=== PATIENT | male | born 1980 | race Caucasian/White ===

== ENCOUNTER 2021-05-23 15:06 | Emergency (ER) | payer SELFPAY ==
[2021-05-23 16:11] VITALS: TEMP 98.5
[2021-05-23] MEDS ORDERED: HYDROmorphone 0.5 MG/0.5 ML SYRINGE IVP STA (16:27)
[2021-05-23] MEDS ORDERED: SODIUM CHLORIDE 0.9% 2,000 ML IV STA (16:27)
[2021-05-23] MEDS ORDERED: ONDANSETRON 4 MG/2 ML VIAL IVP STA (16:27)
--- NOTE | 2021-05-23 16:33 | ED ---
Abdominal Pain HPI - General Chief Complaint: Abdominal Pain Stated Complaint: abd pain, referred by urgent care Time Seen by Provider: 05/23/21 16:15 Source: patient, RN notes reviewed Mode of arrival: wheelchair Limitations: no limitations - History of Present Illness Initial Comments: 40-year-old male presents emergency dept with chief complaint of abdominal pain. Patient states been having increasing abdominal pain last 4 days. Patient had nausea vomiting decreased urine and stool output. Patient states he feels like stuff is stuck in the stomach. Patient states she seen at urgent care sent here for further evaluation. Patient states that he was exposed covid 19 Adequate symptoms that started on the . Patient states that those symp toms improved and then this abdominal pain started. No prior abdominal surgeries no fevers chills no flank pain no other complaints. - Related Data Previous Rx's Medication Instructions Recorded Ondansetron Odt [Zofran Odt] 4 mg PO Q8HR PRN #10 tab 05/23/21 Allergies Allergy/AdvReac Type Severity Reaction Status Date / Time No Known Allergies Allergy Verified 05/23/21 18:02 Review of Systems ROS Statement: Those systems with pertinent positive or pertinent negative responses have been documented in the HPI. ROS Other: All systems not noted in ROS Statement are negative. Past Medical History Past Medical History: No Reported History History of Any Multi-Drug Resistant Organisms: None Reported Past Surgical History: No Surgical Hx Reported Past Psychological History: No Psychological Hx Reported Smoking Status: Never smoker Past Alcohol Use History: Rare Past Drug Use History: None Reported General Exam Limitations: no limitations General appearance: alert, in no apparent distress Head exam: Present: atraumatic, normocephalic, normal inspection Eye exam: Present: normal appearance, PERRL, EOMI. Absent: scleral icterus, con junctival injection, periorbital swelling Neck exam: Present: normal inspection. Absent: tenderness, meningismus, lymphadenopathy Respiratory exam: Present: normal lung sounds bilaterally Cardiovascular Exam: Present: regular rate, normal rhythm, normal heart sounds. Absent: systolic murmur, diastolic murmur, rubs, gallop, clicks GI/Abdominal exam: Present: soft, tenderness, normal bowel sounds. Absent: distended, guarding, rebound, rigid Back exam: Absent: CVA tenderness (R), CVA tenderness (L) Neurological exam: Present: alert Skin exam: Present: warm, dry, intact, normal color. Absent: rash Course Vital Signs 05/23/21 05/23/21 16:00 19:06 Temperature 98.5 F Pulse Rate 108 H 87 Respiratory 20 18 Rate Blood Pressure 121/77 131/85 O2 Sat by Pulse 96 97 Oximetry Medical Decision Making - Medical Decision Making CT AL as reviewed CT is unremarkable. Patient does have moderate dehydration his great improvement antiemetics and fluids. Patient symptoms started after having COVID-19 may be related. Patient will be discharged in stable condition return parameters discussed. - Lab Data Result diagrams: 05/23/21 16:53 05/23/21 16:53 Lab Results 05/23/21 05/23/21 05/23/21 Range/Units 16:53 16:53 16:53 WBC 4.4 (3.8-10.6) k/uL RBC 5.05 (4.30-5.90) m/uL Hgb 16.0 (13.0-17.5) gm/dL Hct 45.0 (39.0-53.0) % MCV 89.0 (80.0-100.0) fL MCH 31.8 (25.0-35.0) pg MCHC 35.7 (31.0-37.0) g/dL RDW 11.6 (11.5-15.5) % Plt Count 226 (150-450) k/uL MPV 8.3 Neutrophils % 80 % Lymphocytes % 12 % Monocytes % 6 % Eosinophils % 0 % Basophils % 0 % Neutrophils # 3.5 (1.3-7.7) k/uL Lymphocytes # 0.6 L (1.0-4.8) k/uL Monocytes # 0.3 (0-1.0) k/uL Eosinophils # 0.0 (0-0.7) k/uL Basophils # 0.0 (0-0.2) k/uL Sodium 135 L (137-145) mmol/L Potassium 4.1 (3.5-5.1) mmol/L Chloride 97 L (98-107) mmol/L Carbon Dioxide 25 (22-30) mmol/L Anion Gap 13 mmol/L BUN 23 H (9-20) mg/dL Creatinine 1.12 (0.66-1.25) mg/dL Est GFR (CKD-EPI)AfAm >90 (>60 ml/min/1.73 sqM) Est GFR (CKD-EPI)NonAf 83 (>60 ml/min/1.73 sqM) Glucose 110 H (74-99) mg/dL Plasma Lactic Acid Walter (0.7-2.0) mmol/L Calcium 8.7 (8.4-10.2) mg/dL Total Bilirubin 1.0 (0.2-1.3) mg/dL AST 38 (17-59) U/L ALT 13 (4-49) U/L Alkaline Phosphatase 59 (38-126) U/L Total Protein 7.6 (6.3-8.2) g/dL Albumin 4.3 (3.5-5.0) g/dL Lipase 357 H (23-300) U/L Urine Color Yellow Urine Appearance Clear (Clear) Urine pH 6.5 (5.0-8.0) Ur Specific [place] >1.050 H (1.001-1.035) Urine Protein 2+ H (Negative) Urine Glucose (UA) Negative (Negative) Urine Ketones 2+ H (Negative) Urine Blood Small H (Negative) Urine Nitrite Negative (Negative) Urine Bilirubin Negative (Negative) Urine Urobilinogen <2.0 (<2.0) mg/dL Ur Leukocyte Esterase Negative (Negative) Urine RBC 1 (0-5) /hpf Urine WBC 1 (0-5) /hpf Urine Mucus Rare H (None) /hpf 05/23/21 Range/Units 16:53 WBC (3.8-10.6) k/uL RBC (4.30-5.90) m/uL Hgb (13.0-17.5) gm/dL Hct (39.0-53.0) % MCV (80.0-100.0) fL MCH (25.0-35.0) pg MCHC (31.0-37.0) g/dL RDW (11.5-15.5) % Plt Count (150-450) k/uL MPV Neutrophils % % Lymphocytes % % Monocytes % % Eosinophils % % Basophils % % Neutrophils # (1.3-7.7) k/uL Lymphocytes # (1.0-4.8) k/uL Monocytes # (0-1.0) k/uL Eosinophils # (0-0.7) k/uL Basophils # (0-0.2) k/uL Sodium (137-145) mmol/L Potassium (3.5-5.1) mmol/L Chloride (98-107) mmol/L Carbon Dioxide (22-30) mmol/L Anion Gap mmol/L BUN (9-20) mg/dL Creatinine (0.66-1.25) mg/dL Est GFR (CKD-EPI)AfAm (>60 ml/min/1.73 sqM) Est GFR (CKD-EPI)NonAf (>60 ml/min/1.73 sqM) Glucose (74-99) mg/dL Plasma Lactic Acid Walter 1.5 (0.7-2.0) mmol/L Calcium (8.4-10.2) mg/dL Total Bilirubin (0.2-1.3) mg/dL AST (17-59) U/L ALT (4-49) U/L Alkaline Phosphatase (38-126) U/L Total Protein (6.3-8.2) g/dL Albumin (3.5-5.0) g/dL Lipase (23-300) U/L Urine Color Urine Appearance (Clear) Urine pH (5.0-8.0) Ur Specific [place] (1.001-1.035) Urine Protein (Negative) Urine Glucose (UA) (Negative) Urine Ketones (Negative) Urine Blood (Negative) Urine Nitrite (Negative) Urine Bilirubin (Negative) Urine Urobilinogen (<2.0) mg/dL Ur Leukocyte Esterase (Negative) Urine RBC (0-5) /hpf Urine WBC (0-5) /hpf Urine Mucus (None) /hpf Disposition Clinical Impression: Abdominal pain, Dehydration Disposition: HOME SELF-CARE Condition: Stable Instructions (If sedation given, give patient instructions): Abdominal Pain (ED), Dehydration (ED) Additional Instructions: Please return to the Emergency Department if symptoms worsen or any other concerns. Prescriptions: Ondansetron Odt [Zofran Odt] 4 mg PO Q8HR PRN #10 tab PRN Reason: Nausea Is patient prescribed a controlled substance at d/c from ED?: No Referrals: None,Stated [Primary Care Provider] - 1-2 days Time of Disposition: 19:42
[2021-05-23 17:00] LABS: Basophils % (A) 0 %; Eosinophils % (A) 0 %; Lymphocytes # (A) 0.6 k/uL (1.0-4.8); Lymphocytes % (A) 12 %; MCH 31.8 pg (25.0-35.0); MCHC 35.7 g/dL (31.0-37.0); Mean Platelet Volume 8.3; Monocytes # (A) 0.3 k/uL (0-1.0); Monocytes % (A) 6 %; Neutrophils # (A) 3.5 k/uL (1.3-7.7); Neutrophils % (A) 80 %; Platelet Count 226 k/uL (150-450); RBC 5.05 m/uL (4.30-5.90); RDW 11.6 % (11.5-15.5); WBC 4.4 k/uL (3.8-10.6)
[2021-05-23 17:15] LABS: ALT 13 U/L (4-49); AST 38 U/L (17-59); African American GFR (CKD) >90 (>60 ml/min/1.73 sqM); Albumin 4.3 g/dL (3.5-5.0); Alkaline Phosphatase 59 U/L (38-126); Anion Gap 13 mmol/L; Blood Urea Nitrogen 23 mg/dL (9-20); Calcium 8.7 mg/dL (8.4-10.2); Carbon Dioxide 25 mmol/L (22-30); Chloride 97 mmol/L (98-107); Glucose 110 mg/dL (74-99); Lipase 357 U/L (23-300); Non-African American GFR(CKD) 83 (>60 ml/min/1.73 sqM); Potassium 4.1 mmol/L (3.5-5.1); Sodium 135 mmol/L (137-145); Total Protein 7.6 g/dL (6.3-8.2)
--- NOTE | 2021-05-23 17:45 | CT ---
EXAMINATION TYPE: CT abdomen pelvis w con DATE OF EXAM: 05/23/2021 COMPARISON: Abdominal pain HISTORY: Mid abdominal pain with nausea and vomiting. CT DLP: 846.3 mGycm Automated exposure control for dose reduction was used. CONTRAST: Performed with IV Contrast, patient injected with 100 mL of Isovue 300. Images obtained from the diaphragm to the floor the pelvis with IV contrast. There is some subpleural patchy airspace infiltrate at the lung bases. Heart size is normal. There is no pericardial effusion. There is no pleural effusion. Liver and spleen appear intact. The bile duct s are not dilated. There is no pancreatic mass. Stomach is intact. Gallbladder appears normal. There is no adrenal mass. Kidneys show satisfactory contrast opacification. There is no hydronephrosi s. Bladder distends smoothly. There is no inguinal hernia. There is no free fluid in the pelvis. There is no mesenteric edema. There is no ascites or free air. There is no bowel obstruction. There i s high density in the appendix but could be old contrast material. The appendix has normal size. The lumbar vertebrae have normal alignment. Posterior elements are intact. There is no compression fr acture. Bony pelvis is intact. The hip joints are intact. IMPRESSION: No abnormality seen within the abdomen and pelvis. There are some small subpleural infiltrates at the lung bases.
[2021-05-23 19:07] VITALS: BP 131/85; PULSE 87; RESP 18
[2021-05-23 19:26] LABS: Appearance,Urine Clear (Clear); Bilirubin,Urine Negative (Negative); Blood,Urine Small (Negative); Color,Urine Yellow; Glucose,Urine (UA) Negative (Negative); Ketones,Urine 2+ (Negative); Leukocyte Esterase,Urine Negative (Negative); Mucus,Urine Rare /hpf; Nitrite,Urine Negative (Negative); PH, Urine 6.5 (5.0-8.0); Protein,Urine 2+ (Negative); RBC,Urine 1 /hpf (0-5); Urobilinogen,Urine <2.0 mg/dL (<2.0); WBC,Urine 1 /hpf (0-5)
[2021-05-23 19:29] LABS: Specific Gravity,Urine >1.050 (1.001-1.035)
[2021-05-23] MEDS ORDERED: ONDANSETRON 4 MG ODT STARTER PACK 2 TAB BTL PO STA (19:43)
== END 2021-05-23 20:08 | disposition home or self-care (01) ==
LOC: EC 15:06
DX: E86.0 Dehydration (principal); R10.9 Unspecified abdominal pain
CPT/HCPCS: 36415; 80053; 83605; 83690; 85025; 81001; 74177; 99284; 96374; 96375; J2405; J1170; Q9967

== ENCOUNTER 2021-05-26 09:15 | Emergency (ER) | payer OTHER ==
[2021-05-26 09:21] VITALS: TEMP 97.9
[2021-05-26] MEDS ORDERED: MORPHINE SULFATE 4 MG/ML SYRINGE IV STA (09:43)
[2021-05-26] MEDS ORDERED: SODIUM CHLORIDE 0.9% 1,000 ML IV STA (09:43)
[2021-05-26] MEDS ORDERED: ONDANSETRON 4 MG/2 ML VIAL IVP STA (09:43)
--- NOTE | 2021-05-26 09:56 | ED ---
Abdominal Pain HPI - General Chief Complaint: Abdominal Pain Stated Complaint: abd pain-revisit Time Seen by Provider: 05/26/21 09:27 Source: patient Mode of arrival: ambulatory Limitations: no limitations - History of Present Illness Initial Comments: This 40-year-old male presents to the emergency department with abdominal pain x3 days. Patient states as of yesterday he started to experience shortness of breath, vomiting, and worsening fatigue. States he has is also experiencing decreased appetite and body aches. Patient states he was here on Tuesday for abdominal pain and felt better for a day. Patient describes his abdominal pain as aching and comes and goes. He states he tested positive for COVID-19 on 05/13/21 has not felt good since. Patient denies chest pain, hemoptysis, headache, mucus production, visual changes. - Related Data Previous Rx's Medication Instructions Recorded Ondansetron Odt [Zofran Odt] 4 mg PO Q8HR PRN #10 tab 05/23/21 Allergies Allergy/AdvReac Type Severity Reaction Status Date / Time No Known Allergies Allergy Verified 05/26/21 11:34 Review of Systems ROS Statement: Those systems with pertinent positive or pertinent negative responses have been documented in the HPI. ROS Other: All systems not noted in ROS Statement are negative. Past Medical History Past Medical History: No Reported History Additional Past Medical History / Comment(s): Covid History of Any Multi-Drug Resistant Organisms: None Reported Past Surgical History: No Surgical Hx Reported Past Psychological History: No Psychological Hx Reported Smoking Status: Never smoker Past Alcohol Use History: Rare Past Drug Use History: None Reported General Exam Limitations: no limitations General appearance: alert, in no apparent distress Head exam: Present: atraumatic Eye exam: Present: normal appearance, EOMI ENT exam: Present: mucous membranes moist Neck exam: Present: normal inspection Respiratory exam: Present: normal lung sounds bilaterally. Absent: respiratory distress, wheezes, rales, rhonchi, stridor Cardiovascular Exam: Present: regular rate, normal rhythm, normal heart sounds. Absent: systolic murmur, diastolic murmur, rubs, gallop, clicks GI/Abdominal exam: Present: soft, tenderness (Slightly tender around the umbilicus and in the middle of lower quadrants. Discomfort in all quadrants.), normal bowel sounds Extremities exam: Present: normal inspection, full ROM Back exam: Present: normal inspection, full ROM Neurological exam: Present: alert, oriented X3, CN II-XII intact Psychiatric exam: Present: normal affect, normal mood Skin exam: Present: warm, dry, intact, normal color. Absent: rash Course Vital Signs 05/26/21 05/26/21 09:18 11:46 Temperature 97.9 F Pulse Rate 108 H 89 Respiratory 20 18 Rate Blood Pressure 105/76 126/85 O2 Sat by Pulse 94 L 96 Oximetry Medical Decision Making - Medical Decision Making This 40-year-old male who was positive for COVID-19 on [id number] presents to the emergency department with abdominal pain, shortness of breath, and fatigue x 1week. Labs revealed d-dimer of 2.49 and all others were unremarkable. XR KUB: There is a normal bowel gas pattern, says margins are normal, no organomegaly is present, no free air is identified, no suspicious air-fluid levels or differential air fluid levels are present no mass effect is evident. CT abdomen/pelvis: No bowel obstruction. No significant new or acute finding is seen to account for patient's clinical symptoms. Chest CTA: No CT evidence for acute pulmonary embolism. Bilateral multifocal organizing consolidations mid to lower lungs greatest in the periphery consistent with COVID-19 infection. After pain medications, fluid, and nausea medication patient states he feels much better and symptoms have improved. Patient given strict return precautions. Patient agreeable to plan to follow up with primary provider or GI next 1-2 days to return if new or worsening symptoms occur. Advised to get pulse oximeter from [facility] and to return to emergency department with oxygen drops below 90%. Patient advised to take vitamin C, vitamin D, zinc. Patient sent home stable condition. - Lab Data Result diagrams: 05/26/21 10:03 05/26/21 10:03 Lab Results 05/26/21 05/26/21 05/26/21 Range/Units 10:03 10:03 10:03 WBC 6.6 (3.8-10.6) k/uL RBC 4.66 (4.30-5.90) m/uL Hgb 14.9 (13.0-17.5) gm/dL Hct 42.2 (39.0-53.0) % MCV 90.6 (80.0-100.0) fL MCH 32.1 (25.0-35.0) pg MCHC 35.4 (31.0-37.0) g/dL RDW 11.7 (11.5-15.5) % Plt Count 311 (150-450) k/uL MPV 8.3 Neutrophils % 82 % Lymphocytes % 9 % Monocytes % 6 % Eosinophils % 1 % Basophils % 0 % Neutrophils # 5.4 (1.3-7.7) k/uL Lymphocytes # 0.6 L (1.0-4.8) k/uL Monocytes # 0.4 (0-1.0) k/uL Eosinophils # 0.0 (0-0.7) k/uL Basophils # 0.0 (0-0.2) k/uL D-Dimer (<0.60) mg/L FEU Sodium 136 L (137-145) mmol/L Potassium 3.8 (3.5-5.1) mmol/L Chloride 101 (98-107) mmol/L Carbon Dioxide 23 (22-30) mmol/L Anion Gap 12 mmol/L BUN 15 (9-20) mg/dL Creatinine 0.98 (0.66-1.25) mg/dL Est GFR (CKD-EPI)AfAm >90 (>60 ml/min/1.73 sqM) Est GFR (CKD-EPI)NonAf >90 (>60 ml/min/1.73 sqM) Glucose 117 H (74-99) mg/dL Plasma Lactic Acid Walter (0.7-2.0) mmol/L Calcium 8.6 (8.4-10.2) mg/dL Total Bilirubin 1.3 (0.2-1.3) mg/dL AST 35 (17-59) U/L ALT 15 (4-49) U/L Alkaline Phosphatase 58 (38-126) U/L Total Protein 6.8 (6.3-8.2) g/dL Albumin 3.5 (3.5-5.0) g/dL Amylase 94 (30-110) U/L Lipase 381 H (23-300) U/L Urine Color Dark Yellow Urine Appearance Clear (Clear) Urine pH 6.5 (5.0-8.0) Ur Specific [place] 1.032 (1.001-1.035) Urine Protein 3+ H (Negative) Urine Glucose (UA) Negative (Negative) Urine Ketones 1+ H (Negative) Urine Blood Trace H (Negative) Urine Nitrite Negative (Negative) Urine Bilirubin 1+ H (Negative) Urine Urobilinogen 3.0 (<2.0) mg/dL Ur Leukocyte Esterase Negative (Negative) Urine RBC 1 (0-5) /hpf Urine WBC 8 H (0-5) /hpf Urine Bacteria Rare H (None) /hpf Urine Mucus Many H (None) /hpf 05/26/21 05/26/21 Range/Units 10:03 10:03 WBC (3.8-10.6) k/uL RBC (4.30-5.90) m/uL Hgb (13.0-17.5) gm/dL Hct (39.0-53.0) % MCV (80.0-100.0) fL MCH (25.0-35.0) pg MCHC (31.0-37.0) g/dL RDW (11.5-15.5) % Plt Count (150-450) k/uL MPV Neutrophils % % Lymphocytes % % Monocytes % % Eosinophils % % Basophils % % Neutrophils # (1.3-7.7) k/uL Lymphocytes # (1.0-4.8) k/uL Monocytes # (0-1.0) k/uL Eosinophils # (0-0.7) k/uL Basophils # (0-0.2) k/uL D-Dimer 2.49 H (<0.60) mg/L FEU Sodium (137-145) mmol/L Potassium (3.5-5.1) mmol/L Chloride (98-107) mmol/L Carbon Dioxide (22-30) mmol/L Anion Gap mmol/L BUN (9-20) mg/dL Creatinine (0.66-1.25) mg/dL Est GFR (CKD-EPI)AfAm (>60 ml/min/1.73 sqM) Est GFR (CKD-EPI)NonAf (>60 ml/min/1.73 sqM) Glucose (74-99) mg/dL Plasma Lactic Acid Walter 1.4 (0.7-2.0) mmol/L Calcium (8.4-10.2) mg/dL Total Bilirubin (0.2-1.3) mg/dL AST (17-59) U/L ALT (4-49) U/L Alkaline Phosphatase (38-126) U/L Total Protein (6.3-8.2) g/dL Albumin (3.5-5.0) g/dL Amylase (30-110) U/L Lipase (23-300) U/L Urine Color Urine Appearance (Clear) Urine pH (5.0-8.0) Ur Specific [place] (1.001-1.035) Urine Protein (Negative) Urine Glucose (UA) (Negative) Urine Ketones (Negative) Urine Blood (Negative) Urine Nitrite (Negative) Urine Bilirubin (Negative) Urine Urobilinogen (<2.0) mg/dL Ur Leukocyte Esterase (Negative) Urine RBC (0-5) /hpf Urine WBC (0-5) /hpf Urine Bacteria (None) /hpf Urine Mucus (None) /hpf When compared to previous EKG there are: other (EKG:Normal sinus rhythm circular rate 97 bpm, WI interval 138, QRS duration is 144, QT/QTc is 382/485) Disposition Clinical Impression: Abdominal pain, COVID-19 Disposition: HOME SELF-CARE Condition: Stable Additional Instructions: Return to the emergency department for any new worsening symptoms. Can take [id number] vitamin D, vitamin C, zinc. Advised to get pulse oximeter from [facility] and return to emergency department if oxygen drops below 90%. Is patient prescribed a controlled substance at d/c from ED?: No Referrals: None,Stated [Primary Care Provider] - 1-2 days Time of Disposition: 12:46
[2021-05-26 10:24] LABS: Basophils % (A) 0 %; Eosinophils % (A) 1 %; HCT 42.2 % (39.0-53.0); HGB 14.9 gm/dL (13.0-17.5); Lymphocytes # (A) 0.6 k/uL (1.0-4.8); Lymphocytes % (A) 9 %; MCH 32.1 pg (25.0-35.0); MCHC 35.4 g/dL (31.0-37.0); MCV 90.6 fL (80.0-100.0); Mean Platelet Volume 8.3; Monocytes # (A) 0.4 k/uL (0-1.0); Monocytes % (A) 6 %; Neutrophils # (A) 5.4 k/uL (1.3-7.7); Neutrophils % (A) 82 %; Platelet Count 311 k/uL (150-450); RBC 4.66 m/uL (4.30-5.90); RDW 11.7 % (11.5-15.5); WBC 6.6 k/uL (3.8-10.6)
--- NOTE | 2021-05-26 10:34 | XR ---
EXAMINATION TYPE: XR chest 2V DATE OF EXAM: 05/26/2021 COMPARISON: 07/12/2011 INDICATION: Abdomen pain TECHNIQUE: Frontal and lateral views of the chest are obtained. FINDINGS: The heart size is normal. The pulmonary vasculature is normal. Patchy infiltrates are within the mid to lower lung cerda bilaterally slightly greater on the left c ompared to the right.. No free air is under the diaphragm. IMPRESSION: 1. Patchy bilateral mid to lower lung field infiltrates. Follow-up is recommended.
--- NOTE | 2021-05-26 10:35 | XR ---
EXAMINATION TYPE: XR KUB DATE OF EXAM: 05/26/2021 COMPARISON: None INDICATION: Abdomen pain TECHNIQUE: Single view abdomen upright view FINDINGS: There is a normal bowel gas pattern. Psoas margins are normal. No organomegaly is present. No free air is identified. No suspicious air-fluid levels or differential air-fluid levels are presen t no mass effect is evident. IMPRESSION: 1. Unremarkable Abdomen
[2021-05-26 10:44] LABS: ALT 15 U/L (4-49); AST 35 U/L (17-59); African American GFR (CKD) >90 (>60 ml/min/1.73 sqM); Albumin 3.5 g/dL (3.5-5.0); Alkaline Phosphatase 58 U/L (38-126); Amylase 94 U/L (30-110); Anion Gap 12 mmol/L; Blood Urea Nitrogen 15 mg/dL (9-20); Calcium 8.6 mg/dL (8.4-10.2); Carbon Dioxide 23 mmol/L (22-30); Chloride 101 mmol/L (98-107); Glucose 117 mg/dL (74-99); Lipase 381 U/L (23-300); Non-African American GFR(CKD) >90 (>60 ml/min/1.73 sqM); Potassium 3.8 mmol/L (3.5-5.1); Sodium 136 mmol/L (137-145); Total Bilirubin 1.3 mg/dL (0.2-1.3); Total Protein 6.8 g/dL (6.3-8.2)
[2021-05-26 10:53] LABS: Appearance,Urine Clear (Clear); Bacteria,Urine Rare /hpf; Bilirubin,Urine 1+ (Negative); Blood,Urine Trace (Negative); Color,Urine Dark Yellow; Glucose,Urine (UA) Negative (Negative); Ketones,Urine 1+ (Negative); Leukocyte Esterase,Urine Negative (Negative); Mucus,Urine Many /hpf; Nitrite,Urine Negative (Negative); PH, Urine 6.5 (5.0-8.0); Protein,Urine 3+ (Negative); RBC,Urine 1 /hpf (0-5); Specific Gravity,Urine 1.032 (1.001-1.035); WBC,Urine 8 /hpf (0-5)
[2021-05-26 11:47] VITALS: BP 126/85; PULSE 89; RESP 18
--- NOTE | 2021-05-26 11:55 | CT ---
EXAMINATION TYPE: CT chest angio for PE DATE OF EXAM: 05/26/2021 COMPARISON: Chest x-ray earlier today HISTORY: sob CT DLP: 345 mGycm. Automated Exposure Control for Dose Reduction was Utilized. CONTRAST: CTA scan of the thorax is performed with IV Contrast, patient injected with 100 mL of Isovue 370, pul monary embolism protocol. MIP Images are created on CT scanner and reviewed. . FINDINGS: LUNGS: Correlating with chest x-ray there are bilateral peripheral multifocal organizing consolidatio ns with few small areas of groundglass opacity greatest in the mid to lower lungs. No pleural effusio n or pneumothorax seen bilaterally MEDIASTINUM: There is satisfactory enhancement of the pulmonary artery and its branches, there is no CT evidence for pulmonary embolism. There are prominent bilateral hilar lymph nodes presumed reactiv e. No cardiomegaly or pericardial effusion is seen. OTHER: Please refer to same day CT abdomen and pelvis report for complete details on the upper abdome n. IMPRESSION: No CT evidence for acute pulmonary embolism. Bilateral multifocal organizing consolidatio ns mid to lower lungs greatest in the periphery consistent with covid-19 infection.
--- NOTE | 2021-05-26 11:59 | CT ---
EXAMINATION TYPE: CT abdomen pelvis w con DATE OF EXAM: 05/26/2021 COMPARISON: CT abdomen and pelvis 3 days ago HISTORY: continued abdominal pain with nausea and vomiting. CT DLP: 918.4 mGycm, Automated Exposure Control for Dose Reduction was Utilized. CONTRAST: CT scan of the abdomen and pelvis is performed without oral but with IV Contrast, patient injected wi th 100 mL of Isovue 370. FINDINGS: LUNG BASES: Please refer to CTA chest report pelvis performed same time. LIVER/GB: No significant abnormality is appreciated. PANCREAS: No significant abnormality is seen. SPLEEN: No significant abnormality is seen. ADRENALS: No significant abnormality is seen. KIDNEYS: No significant abnormality is seen. BOWEL: Some residual high density material throughout the colon less prominent than prior study. No s uspicious small or large bowel dilatation is seen. PROSTATE/SEMINAL VESICLES: No gross abnormality seen. LYMPH NODES: No greater than 1cm abdominal or pelvic lymph nodes are appreciated. OSSEOUS STRUCTURES: No significant abnormality is seen. OTHER: Small fat-containing bilateral inguinal hernias redemonstrated. IMPRESSION: No bowel obstruction. No significant new or acute finding is seen to account for patient 's clinical symptoms.
== END 2021-05-26 13:00 | disposition home or self-care (01) ==
LOC: EC 09:15
DX: U07.1 COVID-19 (principal); R10.84 Generalized abdominal pain
CPT/HCPCS: 99285; 96374; 96375; 96361 ×2; 36415; 93005; 85379; 80053; 82150; 83605; 83690; 85025; 81001; 71046; 74018; 71275; 74177; J2270; J2405; Q9967

== ENCOUNTER 2021-06-01 16:58 | Inpatient (IN) | payer OTHER ==
[2021-06-01] MEDS ORDERED: ALBUTEROL HFA INHALER INHALATION STA (17:30)
[2021-06-01] MEDS ORDERED: SODIUM CHLORIDE 0.9% 1,000 ML IV STA ×2 (17:30→18:47)
[2021-06-01] MEDS ORDERED: HYDROmorphone 0.5 MG/0.5 ML SYRINGE IVP STA (17:33)
[2021-06-01] MEDS ORDERED: KETOROLAC 15 MG/ML 1 ML VIAL IVP STA (17:37)
--- NOTE | 2021-06-01 17:37 | ED ---
General Adult HPI - General Chief complaint: Upper Respiratory Infection Stated complaint: SOB Time Seen by Provider: 06/01/21 17:25 Source: patient, EMS, RN notes reviewed, old records reviewed Mode of arrival: EMS Limitations: no limitations - History of Present Illness Initial comments: 40-year-old male, presents to the emergency room with complaints of increasing dyspnea. He states he was diagnosed with coronavirus on May 14. He has not been vaccinated. He continues to have shortness of breath, right-sided rib pain that radiates into his back. Patient states that it is painful with every breath. He does not have a productive cough, he has not had fevers. He states he went to urgent care today to get an inhaler and steroids and they told him to come to the emergency room with an elevated heart rate. He has no medical history. -: week(s) (2) Location: chest, back (right side) Severity scale (1-10): 8 Quality: aching, sharp, constant Consistency: constant Improves with: none Worsens with: other (breathing) Associated Symptoms: loss of appetite, malaise, shortness of breath - Related Data Home Medications Medication Instructions Recorded Confirmed Ondansetron Odt [Zofran Odt] 4 mg PO Q8H PRN 06/01/21 06/01/21 Allergies Allergy/AdvReac Type Severity Reaction Status Date / Time No Known Allergies Allergy Verified 06/01/21 18:14 Review of Systems ROS Statement: Those systems with pertinent positive or pertinent negative responses have been documented in the HPI. ROS Other: All systems not noted in ROS Statement are negative. Past Medical History Past Medical History: No Reported History Additional Past Medical History / Comment(s): Covid History of Any Multi-Drug Resistant Organisms: None Reported Past Surgical History: No Surgical Hx Reported Past Psychological History: No Psychological Hx Reported Smoking Status: Never smoker Past Alcohol Use History: Rare Past Drug Use History: None Reported General Exam Limitations: no limitations General appearance: alert, in no apparent distress Head exam: Present: atraumatic, normocephalic, normal inspection Eye exam: Present: normal appearance, EOMI. Absent: scleral icterus, conjunctival injection, periorbital swelling, periorbital tenderness ENT exam: Present: normal exam, normal oropharynx, mucous membranes moist Neck exam: Present: normal inspection, full ROM. Absent: tenderness, meningismus, lymphadenopathy, thyromegaly Respiratory exam: Present: rales ([place]), decreased breath sounds (Diminished at the bases) Cardiovascular Exam: Present: tachycardia. Absent: JVD GI/Abdominal exam: Present: soft, normal bowel sounds. Absent: distended, tenderness, guarding, rebound, rigid Extremities exam: Present: normal inspection, full ROM, normal capillary refill. Absent: tenderness, pedal edema, joint swelling, calf tenderness Back exam: Present: normal inspection, full ROM, tenderness. Absent: CVA tenderness (R) (Right side), CVA tenderness (L), rash noted Neurological exam: Present: alert, oriented X3 Psychiatric exam: Present: normal affect, normal mood Skin exam: Present: warm, dry, intact, normal color. Absent: cyanosis, d iaphoretic, erythema, petechiae, pallor Course Vital Signs 06/01/21 06/01/21 06/01/21 17:12 17:19 20:20 Temperature 99.5 F Pulse Rate 130 H 113 H Respiratory 16 26 H 18 Rate Blood Pressure 143/118 125/91 O2 Sat by Pulse 98 96 Oximetry 06/01/21 06/01/21 21:00 22:00 Temperature 98 F Pulse Rate 121 H 122 H Respiratory 18 18 Rate Blood Pressure 129/90 122/68 O2 Sat by Pulse 95 98 Oximetry - Reevaluation(s) Reevaluation #1: 06/01/21 18:31 Patient states his pain is 6 and 50 better after Toradol and Dilaudid. He continues to be dyspneic tachycardic 120, discussed with Dr. Gastelum Time: 18:31 Reevaluation #2: 06/01/21 19:22 His blood pressures down to 120/90, heart rate 128. Bolus IV fluids continue. Patient states that he is feeling much better CTA pending Time: 19:22 EKG Findings - EKG Results: EKG: not changed from: (05-26-21) EKG shows: tachycardia (Ventricular rate of 122, MN of 0.126, QRS 0.132, QTC of 0.507) Medical Decision Making - Medical Decision Making 40-year-old male presents with complaints of increasing dyspnea since diagnosed with covid on May 14 with right-sided rib pain that radiates into his back. Heart rate in the 130s, respiratory rate of 26, oxygen saturation 98% on room air. He is Covid negative today. WBC 14.8 with a left shift, platelet count is 694. His d-dimer is elevated at 5.36 therefore CTA was performed with findings consistent with acute bilateral pulmonary embolisms involving the lower lobes with a small clot burden. There is diffuse airspace obesities consistent with atypical pneumonia including Covid. Patient was started on heparin and antibiotics. I did discuss this case with Dr. Gastelum. I also discussed the case with Dr. Gutierres prior to the CT report. - Lab Data Result diagrams: 06/01/21 17:30 06/01/21 17:30 Lab Results 06/01/21 06/01/21 06/01/21 Range/Units 17:30 17:30 17:30 WBC 14.8 H (3.8-10.6) k/uL RBC 4.41 (4.30-5.90) m/uL Hgb 14.3 (13.0-17.5) gm/dL Hct 41.2 (39.0-53.0) % MCV 93.4 (80.0-100.0) fL MCH 32.4 (25.0-35.0) pg MCHC 34.7 (31.0-37.0) g/dL RDW 12.3 (11.5-15.5) % Plt Count 694 H D (150-450) k/uL MPV 7.4 Neutrophils % 84 % Lymphocytes % 7 % Monocytes % 6 % Eosinophils % 0 % Basophils % 0 % Neutrophils # 12.5 H (1.3-7.7) k/uL Lymphocytes # 1.1 (1.0-4.8) k/uL Monocytes # 0.8 (0-1.0) k/uL Eosinophils # 0.0 (0-0.7) k/uL Basophils # 0.0 (0-0.2) k/uL PT 12.7 H (9.0-12.0) sec INR 1.2 H (<1.2) APTT 26.8 (22.0-30.0) sec D-Dimer 5.36 H (<0.60) mg/L FEU Sodium 137 (137-145) mmol/L Potassium 4.1 (3.5-5.1) mmol/L Chloride 102 (98-107) mmol/L Carbon Dioxide 21 L (22-30) mmol/L Anion Gap 14 mmol/L BUN 10 (9-20) mg/dL Creatinine 0.78 (0.66-1.25) mg/dL Est GFR (CKD-EPI)AfAm >90 (>60 ml/min/1.73 sqM) Est GFR (CKD-EPI)NonAf >90 (>60 ml/min/1.73 sqM) Glucose 124 H (74-99) mg/dL Plasma Lactic Acid Walter (0.7-2.0) mmol/L Calcium 8.9 (8.4-10.2) mg/dL Magnesium 2.0 (1.6-2.3) mg/dL Total Bilirubin 1.5 H (0.2-1.3) mg/dL AST 23 (17-59) U/L ALT 20 (4-49) U/L Alkaline Phosphatase 123 (38-126) U/L Troponin I (0.000-0.034) ng/mL Total Protein 7.9 (6.3-8.2) g/dL Albumin 3.7 (3.5-5.0) g/dL Urine Color Urine Appearance (Clear) Urine pH (5.0-8.0) Ur Specific [place] (1.001-1.035) Urine Protein (Negative) Urine Glucose (UA) (Negative) Urine Ketones (Negative) Urine Blood (Negative) Urine Nitrite (Negative) Urine Bilirubin (Negative) Urine Urobilinogen (<2.0) mg/dL Ur Leukocyte Esterase (Negative) Urine RBC (0-5) /hpf Urine WBC (0-5) /hpf Urine Bacteria (None) /hpf Urine Mucus (None) /hpf 06/01/21 06/01/21 06/01/21 Range/Units 17:30 17:30 18:26 WBC (3.8-10.6) k/uL RBC (4.30-5.90) m/uL Hgb (13.0-17.5) gm/dL Hct (39.0-53.0) % MCV (80.0-100.0) fL MCH (25.0-35.0) pg MCHC (31.0-37.0) g/dL RDW (11.5-15.5) % Plt Count (150-450) k/uL MPV Neutrophils % % Lymphocytes % % Monocytes % % Eosinophils % % Basophils % % Neutrophils # (1.3-7.7) k/uL Lymphocytes # (1.0-4.8) k/uL Monocytes # (0-1.0) k/uL Eosinophils # (0-0.7) k/uL Basophils # (0-0.2) k/uL PT (9.0-12.0) sec INR (<1.2) APTT (22.0-30.0) sec D-Dimer (<0.60) mg/L FEU Sodium (137-145) mmol/L Potassium (3.5-5.1) mmol/L Chloride (98-107) mmol/L Carbon Dioxide (22-30) mmol/L Anion Gap mmol/L BUN (9-20) mg/dL Creatinine (0.66-1.25) mg/dL Est GFR (CKD-EPI)AfAm (>60 ml/min/1.73 sqM) Est GFR (CKD-EPI)NonAf (>60 ml/min/1.73 sqM) Glucose (74-99) mg/dL Plasma Lactic Acid Walter 1.6 (0.7-2.0) mmol/L Calcium (8.4-10.2) mg/dL Magnesium (1.6-2.3) mg/dL Total Bilirubin (0.2-1.3) mg/dL AST (17-59) U/L ALT (4-49) U/L Alkaline Phosphatase (38-126) U/L Troponin I <0.012 (0.000-0.034) ng/mL Total Protein (6.3-8.2) g/dL Albumin (3.5-5.0) g/dL Urine Color Dark Yellow Urine Appearance Cloudy (Clear) Urine pH 6.0 (5.0-8.0) Ur Specific [place] 1.033 (1.001-1.035) Urine Protein 3+ H (Negative) Urine Glucose (UA) Negative (Negative) Urine Ketones 2+ H (Negative) Urine Blood Negative (Negative) Urine Nitrite Negative (Negative) Urine Bilirubin 1+ H (Negative) Urine Urobilinogen 6.0 (<2.0) mg/dL Ur Leukocyte Esterase Negative (Negative) Urine RBC 1 (0-5) /hpf Urine WBC 13 H (0-5) /hpf Urine Bacteria Rare H (None) /hpf Urine Mucus Many H (None) /hpf Critical Care Time Critical Care Time: Yes Total Critical Care Time: 40 (Consistent monitoring of respiratory status and tachycardia) Disposition Clinical Impression: Bilateral pulmonary embolism Disposition: ADMITTED IP TO THIS HOSP Decision Date: 06/01/21 Decision Time: 20:49
[2021-06-01 17:55] LABS: Basophils % (A) 0 %; Eosinophils % (A) 0 %; HCT 41.2 % (39.0-53.0); HGB 14.3 gm/dL (13.0-17.5); Lymphocytes # (A) 1.1 k/uL (1.0-4.8); Lymphocytes % (A) 7 %; MCH 32.4 pg (25.0-35.0); MCHC 34.7 g/dL (31.0-37.0); MCV 93.4 fL (80.0-100.0); Mean Platelet Volume 7.4; Monocytes # (A) 0.8 k/uL (0-1.0); Monocytes % (A) 6 %; Neutrophils # (A) 12.5 k/uL (1.3-7.7); Neutrophils % (A) 84 %; RBC 4.41 m/uL (4.30-5.90); RDW 12.3 % (11.5-15.5); WBC 14.8 k/uL (3.8-10.6)
[2021-06-01 18:02] LABS: ALT 20 U/L (4-49); AST 23 U/L (17-59); African American GFR (CKD) >90 (>60 ml/min/1.73 sqM); Albumin 3.7 g/dL (3.5-5.0); Alkaline Phosphatase 123 U/L (38-126); Anion Gap 14 mmol/L; Blood Urea Nitrogen 10 mg/dL (9-20); Calcium 8.9 mg/dL (8.4-10.2); Carbon Dioxide 21 mmol/L (22-30); Chloride 102 mmol/L (98-107); Glucose 124 mg/dL (74-99); Non-African American GFR(CKD) >90 (>60 ml/min/1.73 sqM); Potassium 4.1 mmol/L (3.5-5.1); Sodium 137 mmol/L (137-145); Total Bilirubin 1.5 mg/dL (0.2-1.3); Total Protein 7.9 g/dL (6.3-8.2)
[2021-06-01 18:14] LABS: Platelet Count 694 k/uL (150-450)
[2021-06-01 18:20] LABS: INR 1.2 (<1.2); Partial Thromboplastin Time 26.8 sec (22.0-30.0); Prothrombin Time 12.7 sec (9.0-12.0)
--- NOTE | 2021-06-01 18:24 | XR ---
EXAMINATION TYPE: XR chest 2V DATE OF EXAM: 06/01/2021 COMPARISON: 05/26/2021 HISTORY: Difficulty breathing. TECHNIQUE: Frontal and lateral views of the chest are obtained. FINDINGS: There are persistent moderate right greater than left bibasilar opacities, increased on th e right compared to prior study. There is new small right pleural effusion. No pneumothorax seen. Th e cardiac silhouette size is within normal limits. The osseous structures are intact. IMPRESSION: Worsening bibasilar infiltrates with new small right pleural effusion.
[2021-06-01] MEDS ORDERED: cefTRIAXone IN SWFI 1,000 MG/10 ML SYRINGE IVP STA ×2 (18:30→20:37)
[2021-06-01 18:43] LABS: Appearance,Urine Cloudy (Clear); Bacteria,Urine Rare /hpf; Bilirubin,Urine 1+ (Negative); Blood,Urine Negative (Negative); Color,Urine Dark Yellow; Glucose,Urine (UA) Negative (Negative); Ketones,Urine 2+ (Negative); Leukocyte Esterase,Urine Negative (Negative); Mucus,Urine Many /hpf; Nitrite,Urine Negative (Negative); Protein,Urine 3+ (Negative); RBC,Urine 1 /hpf (0-5); Specific Gravity,Urine 1.033 (1.001-1.035); WBC,Urine 13 /hpf (0-5)
[2021-06-01] MEDS ORDERED: AZITHROMYCIN 500 MG in SODIUM CHLORIDE 0.9% 250 ML IVPB STA (20:37)
--- NOTE | 2021-06-01 20:41 | CT ---
EXAMINATION TYPE: CT angio chest DATE OF EXAM: 06/01/2021 8:00 PM COMPARISON: Same-day radiographs. CT 05/26/2021. HISTORY: Right sided rib pain and shortness of breath, elevated d-dimer and covid. CT DLP: 355 mGycm Automated exposure control for dose reduction was used. CONTRAST: CTA scan of the thorax is performed with IV Contrast, patient injected with 80ml mL of Isovue 370, pu lmonary embolism protocol. MIP images are created and reviewed. FINDINGS: LUNGS: There are bilateral diffuse moderate, peripheral based patchy groundglass opacities. There is small right pleural effusion. No pneumothorax seen. The tracheobronchial tree is patent. MEDIASTINUM: There is satisfactory enhancement of the pulmonary artery and its branches. There are a few filling defects in the bilateral lower lobe pulmonary artery the distal segmental subsegmental br anches. There are diffuse scattered small to borderline prominent mediastinal lymph nodes, may be re active. No pericardial effusion is seen. OTHER: No additional significant abnormality is seen. IMPRESSION: FINDINGS CONSISTENT WITH ACUTE BILATERAL PE INVOLVING THE LOWER LOBES WITH SMALL CLOT BURDEN. DIFFUSE AIRSPACE OPACITIES CONSISTENT ATYPICAL PNEUMONIA INCLUDING COVID. UNSUCCESSFUL ATTEMPT TO REACH ED AT TIME OF DICTATION.
[2021-06-01] MEDS ORDERED: HEPARIN SODIUM 1,000 UN/ML (10ML VL) IV ONE (20:48)
[2021-06-01] MEDS ORDERED: HEPARIN SODIUM 1,000 UN/ML (10ML VL) IV PRN (20:48)
[2021-06-01] MEDS ORDERED: HYDROmorphone 0.5 MG/0.5 ML SYRINGE IVP PRN (20:50)
[2021-06-01] MEDS ORDERED: ACETAMINOPHEN TAB 325 MG TAB PO PRN (20:50)
[2021-06-01] MEDS ORDERED: NALOXONE 0.4 MG/ML 1 ML VIAL IV PRN (20:50)
[2021-06-01] MEDS ORDERED: HEPARIN SOD,PORK IN 0.45% NACL 25,000 UNIT in 0.45% NACL 1 250ML.BAG IV SCH (21:00)
[2021-06-01] MEDS: SODIUM CHLORIDE 0.9% 1,000 ML IV SCH (21:26)
[2021-06-02 03:45] LABS: Basophils % (A) 0 %; Eosinophils % (A) 0 %; HCT 35.4 % (39.0-53.0); HGB 11.6 gm/dL (13.0-17.5); Lymphocytes # (A) 1.3 k/uL (1.0-4.8); Lymphocytes % (A) 11 %; MCH 31.1 pg (25.0-35.0); MCHC 32.9 g/dL (31.0-37.0); MCV 94.5 fL (80.0-100.0); Mean Platelet Volume 7.3; Monocytes # (A) 0.7 k/uL (0-1.0); Monocytes % (A) 6 %; Neutrophils # (A) 8.7 k/uL (1.3-7.7); Neutrophils % (A) 79 %; Platelet Count 642 k/uL (150-450); RBC 3.75 m/uL (4.30-5.90); RDW 12.4 % (11.5-15.5)
[2021-06-02 04:27] LABS: INR 1.2 (<1.2); Partial Thromboplastin Time 40.8 sec (22.0-30.0); Prothrombin Time 12.5 sec (9.0-12.0)
[2021-06-02 07:25] LABS: Basophils % (A) 0 %; Eosinophils % (A) 0 %; HCT 36.4 % (39.0-53.0); HGB 11.9 gm/dL (13.0-17.5); Lymphocytes # (A) 1.1 k/uL (1.0-4.8); Lymphocytes % (A) 10 %; MCH 31.1 pg (25.0-35.0); MCHC 32.6 g/dL (31.0-37.0); MCV 95.5 fL (80.0-100.0); Mean Platelet Volume 7.5; Monocytes # (A) 0.7 k/uL (0-1.0); Monocytes % (A) 7 %; Neutrophils # (A) 8.4 k/uL (1.3-7.7); Neutrophils % (A) 79 %; Platelet Count 579 k/uL (150-450); RBC 3.81 m/uL (4.30-5.90); RDW 11.9 % (11.5-15.5); WBC 10.7 k/uL (3.8-10.6)
[2021-06-02] MEDS: PANTOPRAZOLE 40 MG/10 ML VIAL IV SCH (08:37)
[2021-06-02] MEDS: SODIUM CHLORIDE 0.9% 1,000 ML IV SCH ×3 (08:37→21:11)
--- NOTE | 2021-06-02 10:00 | ECHOF ---
Referral Reason: MEASUREMENTS -------- HEIGHT: 180.3 cm WEIGHT: 81.6 kg BP: RVIDd: 2.2 cm (< 3.3) IVSd: 1.0 cm (0.6 - 1.1) LVIDd: 3.4 cm (3.9 - 5.3) LVPWd: 1.2 cm (0.6 - 1.1) IVSs: 1.5 cm LVIDs: 1.7 cm LVPWs: 1.5 cm Ao Diam: 3.0 cm (2.0 - 3.7) AV Cusp: 1.9 cm (1.5 - 2.6) LA Diam: 2.5 cm (2.7 - 3.8) MV EXCURSION: 16.659 mm (> 18.000) MV EF SLOPE: 90 mm/s (70 - 150) EPSS: 0.5 cm MV E Andrea: 0.98 m/s MV DecT: 131 ms MV A Andrea: 0.92 m/s MV E/A Ratio: 1.07 RAP: 5.00 mmHg RVSP: 8.59 mmHg FINDINGS -------- Resting tachycardia (HR>100bpm). This was a technically difficult study with suboptimal views. The left ventricular size is normal. Left ventricular wall thickness is normal. Overall left vent ricular systolic function is normal with, an EF between 60 - 65 %. The right ventricle is normal in size. The left atrial size is normal. The right atrial size is normal. Lumason used The aortic valve is trileaflet and appears structurally normal. The mitral valve is normal. There is trace mitral regurgitation. The tricuspid valve appears structurally normal. Trace tricuspid regurgitation present. Right ruben tricular systolic pressure is normal at < 35 mmHg. There is no pulmonic regurgitation present. The aortic root size is normal. IVC Not well visulized. There is no pericardial effusion. CONCLUSIONS -------- 1. The left ventricular size is normal. 2. Left ventricular wall thickness is normal. 3. Overall left ventricular systolic function is normal with, an EF between 60 - 65 %. 4. There is trace mitral regurgitation. 5. Trace tricuspid regurgitation present. 6. There is no pericardial effusion. POST ADOPTION COORDINATOR: Jeannette Miller [facility]
--- NOTE | 2021-06-02 10:13 | P.CNPUL ---
History of Present Illness Consult date: 06/02/21 Reason for consult: pulmonary embolism History of present illness: A 40-year-old male patient who presented to the [facility] to yesterday because of worsening shortness of breath, and some symptoms of pleurisy as the patient was having some pain across the right side of the chest radiating to his back especially with deep breathing. He did have a cough without much of any sputum production. No reported fever or chills. His condition was getting worse and for that reason the patient decided to come in to the emergency department. In the ED, the patient was still having right-sided achy chest wall pain. D-dimer was elevated and the level came back at 5.36. Based on that, there was a high suspicion for pulmonary embolism. The patient was given a CT angiogram and the patient was found to have bilateral pulmonary embolism involving the segmental and subsegmental branches of the lower lobes bilaterally with a small clot burden. There was still diffuse airspace disease bilaterally consistent with community related pneumonia and probably the infiltrates were slightly worse compared to the previous CAT scan of the chest that was done on 05/26/2020. Note that at that time, the patient had COVID 19 infection and his original infection was on 05/14/2021. He was not hospitalized. He was seen in our emergency department on 05/26/2021 for symptoms of abdominal pain and body aches and diminished appetite. He denies having any major respiratory difficulties at that point in time. The patient was seen by the emergency physicians and the patient was discharged home while being given a combination of vitamin D and vitamin C and zinc and he was asked to come back to the emergency should there be a drop in his oxygenation or worsening in her respiratory status. At this point in time, the patient on IV heparin. Lisinopril 10.7 and hemoglobin of 11.9. The repeat COVID 19 testing was negative. Pro-Level Was at 0.32. Elect rolytes Are All within Normal Limits. UA Showing Positive Protein, +2 Ketones and Platelet Count Is at 579. He Is Afebrile. Currently Is on 2 L of Oxygen to Bring His Pulse Ox at 97%. Room Air Pulse Ox Has Been Also Stable Some Were between 96 and 98%. Review of Systems Constitutional: Denies chills, Denies fever Eyes: denies as per HPI, denies blurred vision, denies bulging eye, denies decreased vision, denies diplopia, denies discharge, denies dry eye, denies irritation, denies itching, denies pain, denies photophobia, denies loss of peripheral vision, denies loss of vision, denies tunnel vision/blind spots Ears: deny: decreased hearing, ear discharge, earache, tinnitus Ears, nose, mouth and throat: Reports as per HPI Breasts: absent: as per HPI, gynecomastia Cardiovascular: Reports chest pain, Reports decreased exercise tolerance, Reports dyspnea on exertion Respiratory: Reports cough, Reports dyspnea Gastrointestinal: Reports as per HPI Genitourinary: Reports as per HPI Musculoskeletal: Reports as per HPI Musculoskeletal: absent: ankle pain, ankle stiffness, ankle swelling Integumentary: Reports as per HPI Neurological: Reports as per HPI Psychiatric: Reports as per HPI Endocrine: Reports as per HPI Hematologic/Lymphatic: Reports as per HPI Allergic/Immunologic: Reports as per HPI Past Medical History Past Medical History: No Reported History Additional Past Medical History / Comment(s): Covid History of Any Multi-Drug Resistant Organisms: None Reported Past Surgical History: No Surgical Hx Reported Past Psychological History: No Psychological Hx Reported Smoking Status: Never smoker Past Alcohol Use History: Rare Past Drug Use History: None Reported Medications and Allergies Home Medications Medication Instructions Recorded Confirmed Type Ondansetron Odt [Zofran Odt] 4 mg PO Q8H PRN 06/01/21 06/01/21 History Allergies Allergy/AdvReac Type Severity Reaction Status Date / Time No Known Allergies Allergy Verified 06/01/21 18:14 Physical Exam Vitals: Vital Signs Temp Pulse Resp BP Pulse Ox 06/02/21 08:20 98.7 F 112 H 20 119/87 96 06/02/21 04:45 98.2 F 100 18 118/80 97 06/01/21 22:00 122 H 18 122/68 98 06/01/21 21:00 98 F 121 H 18 129/90 95 06/01/21 20:20 113 H 18 125/91 96 06/01/21 17:19 26 H 06/01/21 17:12 99.5 F 130 H 16 143/118 98 Intake and Output 06/01/21 06/02/21 06/02/21 22:59 06:59 14:59 Intake Total 104.587 Balance 104.587 Intake: Intake, IV Titration 104.587 Amount Heparin Sod,Pork in 0.45% 104.587 NaCl 25,000 unit In 0.45 % NaCl 1 250ml.bag @ 18 UNITS/KG/HR 14.696 mls/hr IV .[id number] [facility] Rx#: [id number] Other: Weight 81.647 kg General appearance: alert, in no apparent distress, on 2 liters Head exam: Present: atraumatic, normocephalic, normal inspection Eye exam: Present: normal appearance, EOMI. Absent: scleral icterus, conjunctival injection, periorbital swelling, periorbital tenderness ENT exam: Present: normal exam, normal oropharynx, mucous membranes moist Neck exam: Present: normal inspection, full ROM. Absent: tenderness, mening ismus, lymphadenopathy, thyromegaly Respiratory exam: Present: rales ([place]), decreased breath sounds (Diminished at the bases) Cardiovascular Exam: Present: tachycardia. Absent: JVD GI/Abdominal exam: Present: soft, normal bowel sounds. Absent: distended, tenderness, guarding, rebound, rigid Extremities exam: Present: normal inspection, full ROM, normal capillary refill. Absent: tenderness, pedal edema, joint swelling, calf tenderness Back exam: Present: normal inspection, full ROM, tenderness. Absent: CVA tenderness (R) (Right side), CVA tenderness (L), rash noted Neurological exam: Present: alert, oriented X3 Psychiatric exam: Present: normal affect, normal mood Skin exam: Present: warm, dry, intact, normal color. Absent: cyanosis, diaphoretic, erythema, petechiae, pallor Results - Laboratory Findings CBC and BMP: 06/02/21 06:35 06/01/21 17:30 PT/INR, D-dimer PT 12.5 sec (9.0-12.0) H 06/02/21 03:04 INR 1.2 (<1.2) H 06/02/21 03:04 D-Dimer 5.36 mg/L FEU (<0.60) H 06/01/21 17:30 Abnormal lab findings: Abnormal Labs 06/01/21 06/01/21 06/01/21 17:30 17:30 17:30 WBC 14.8 H RBC Hgb Hct Plt Count 694 H D Neutrophils # 12.5 H PT 12.7 H INR 1.2 H APTT D-Dimer 5.36 H Carbon Dioxide 21 L Glucose 124 H Total Bilirubin 1.5 H Procalcitonin Urine Protein Urine Ketones Urine Bilirubin Urine WBC Urine Bacteria Urine Mucus 06/01/21 06/01/21 06/02/21 18:26 20:54 03:04 WBC 11.0 H RBC 3.75 L Hgb 11.6 L Hct 35.4 L Plt Count 642 H Neutrophils # 8.7 H PT INR APTT D-Dimer Carbon Dioxide Glucose Total Bilirubin Procalcitonin 0.32 H Urine Protein 3+ H Urine Ketones 2+ H Urine Bilirubin 1+ H Urine WBC 13 H Urine Bacteria Rare H Urine Mucus Many H 06/02/21 06/02/21 03:04 06:35 WBC 10.7 H RBC 3.81 L Hgb 11.9 L Hct 36.4 L Plt Count 579 H Neutrophils # 8.4 H PT 12.5 H INR 1.2 H APTT 40.8 H D-Dimer Carbon Dioxide Glucose Total Bilirubin Procalcitonin Urine Protein Urine Ketones Urine Bilirubin Urine WBC Urine Bacteria Urine Mucus - Diagnostic Findings Chest x-ray: image reviewed Assessment and Plan Plan: 1 acute pulmonary embolism. The patient had a CT angiogram that showed bilateral pulmonary embolism involving lower lobe pulmonary arteries. Risk factors include COVID 19 infection that occurred on 05/13/2021 and since then the patient has been essentially sedentary. He does have a family history for pulmonary embolism as his mother has been diagnosed having blood clots. 2 COVID 19 related pneumonia with persistent bilateral pulmonary infiltrates, with probable some interval worsening in the pulmonary infiltration compared to the earlier evaluations 3 vertigo right-sided chest wall pain secondary to above 4 dyspnea cough secondary to above 5 smoker Plan Monitor the oxygenation and titrate oxygen flow to maintain saturation above 90%. Room air pulse ox remains above 90%. Check Doppler of the lower extremities Check echocardiogram This continued IV heparin and put the patient on Eliquis per protocol The patient continues to have persistent bilateral pulmonary infiltration. He may benefit from a round of steroids. I'm going to give him a course of Decadron 6 mg for the next 10 days. Antibiotics can be discontinued Repeat pro-calcitonin level in a.m. No indication for pneumonia and this is a sequelae of the COVID 19 related infection/pneumonia complicated further by pulmonary embolism.
[2021-06-02] MEDS: dexAMETHasone 2 MG TAB PO SCH (10:46)
[2021-06-02] MEDS: APIXABAN 5 MG TAB PO SCH ×2 (10:46→21:10)
--- NOTE | 2021-06-02 12:38 | P.HPIM ---
History of Present Illness This is a pleasant 40 is old male with no significant past medical history presents because of dyspnea and right side chest pain. He presents because of for some dyspnea and right sided chest pain since May 26 or , patient states that he's been exposed and diagnosed with Darren infection on May 13 although there is no documentation or system. This has some mild symptoms and improved but then he started developing abdominal pain and he has visited the emergency room on May 23 for abdominal pain. He was discharged and then returned to emergency room on 05/26 for some dyspnea and coughing, and he was saturating well so he was discharged and asked to monitor his oxygen saturation however since then his symptoms started getting worse. Also he has some hemoptysis Today is lying in bed in mild distress due to his tachypnea and chest pain, he can talk freely with no interruption. He feels generally weak and exhausted, no dysuria or urgency, no headache or dizziness, no abdominal pain, he has some low appetite and mild diarrhea He used to smoke about 1 pack per day and quit on 05/14. No alcohol or illi cit drugs. On admission he was tachycardic a heart rate R rote 100 220, afebrile, saturating 96% on 2 L oxygen via nasal cannula. Labs showing mild leukocytosis 11, hemoglobin 11.6 and high platelet count 642. INR is 1.2 Priorcalcitonin is elevated at 0.32.. Proteinuria was noted also on the prev ious 2 samples from 05/23 and 05/26 Urine analysis showing 3+ protein, 2+ ketones and 1+ bilirubin, [place] virus not detected Chest x-ray: Worsening bilateral basal infiltrates with small right pleural ef fusion CTA of the chest: Acute bilateral pulmonary embolism involving the lower lobes with small clot burden. Diffuse airspace opacity consistent with atypical pneumonia Echocardiogram: Ejection fraction of 60-65% Review of Systems CONSTITUTIONAL: No fever, no malaise, no fatigue. HEENT: No recent visual problems or hearing problems. Denied any sore throat. CARDIOVASCULAR: No orthopnea, PND, no palpitations, no syncope. PULMONARY: No chest wall tenderness, no sore throat GASTROINTESTINAL: No diarrhea, no nausea, no vomiting, no abdominal pain. Normoactive bowel sounds. NEUROLOGICAL: No headaches, no weakness, no numbness. HEMATOLOGICAL: Denies any bleeding or petechiae. GENITOURINARY: Denies any burning micturition, frequency, or urgency. MUSCULOSKELETAL/RHEUMATOLOGICAL: Denies any joint pain, swelling, or any muscle pain. ENDOCRINE: Denies any polyuria or polydipsia. Past Medical History Past Medical History: No Reported History Additional Past Medical History / Comment(s): Covid History of Any Multi-Drug Resistant Organisms: None Reported Past Surgical History: No Surgical Hx Reported Past Psychological History: No Psychological Hx Reported Smoking Status: Never smoker Past Alcohol Use History: Rare Past Drug Use History: None Reported Medications and Allergies Home Medications Medication Instructions Recorded Confirmed Type Ondansetron Odt [Zofran Odt] 4 mg PO Q8H PRN 06/01/21 06/01/21 History Allergies Allergy/AdvReac Type Severity Reaction Status Date / Time No Known Allergies Allergy Verified 06/01/21 18:14 Physical Exam Vitals: Vital Signs Temp Pulse Resp BP Pulse Ox 06/02/21 08:20 98.7 F 112 H 20 119/87 96 06/02/21 04:45 98.2 F 100 18 118/80 97 06/01/21 22:00 122 H 18 122/68 98 06/01/21 21:00 98 F 121 H 18 129/90 95 06/01/21 20:20 113 H 18 125/91 96 06/01/21 17:19 26 H 06/01/21 17:12 99.5 F 130 H 16 143/118 98 Intake and Output 06/01/21 06/02/21 06/02/21 22:59 06:59 14:59 Intake Total 104.587 Balance 104.587 Intake: Intake, IV Titration 104.587 Amount Heparin Sod,Pork in 0.45% 104.587 NaCl 25,000 unit In 0.45 % NaCl 1 250ml.bag @ 18 UNITS/KG/HR 14.696 mls/hr IV .Q17H1M [facility] Rx#: [id number] Other: Weight 81.647 kg GENERAL: The patient is alert and oriented x3, not in any acute distress. Well developed, well nourished. HEENT: Pupils are round and equally reacting to light. EOMI. No scleral icterus. No conjunctival pallor. Normocephalic, atraumatic. No pharyngeal erythema. No thyromegaly. CARDIOVASCULAR: S1 and S2 present. No murmurs, rubs, or gallops. -PULMONARY: Chest is clear to auscultation, no wheezing. Bilateral crackles. ABDOMEN: Soft, nontender, nondistended, normoactive bowel sounds. No palpable organomegaly. MUSCULOSKELETAL: No joint swelling or deformity. EXTREMITIES: No cyanosis, clubbing, or pedal edema. NEUROLOGICAL: Gross neurological examination did not reveal any focal deficits. SKIN: No rashes. No petechiae Results CBC & Chem 7: 06/02/21 06:35 06/01/21 17:30 Labs: Abnormal Lab Results - Last 24 Hours (Table) 06/01/21 06/01/21 06/01/21 Range/Units 17:30 17:30 17:30 WBC 14.8 H (3.8-10.6) k/uL RBC (4.30-5.90) m/uL Hgb (13.0-17.5) gm/dL Hct (39.0-53.0) % Plt Count 694 H D (150-450) k/uL Neutrophils # 12.5 H (1.3-7.7) k/uL PT 12.7 H (9.0-12.0) sec INR 1.2 H (<1.2) APTT (22.0-30.0) sec D-Dimer 5.36 H (<0.60) mg/L FEU Carbon Dioxide 21 L (22-30) mmol/L Glucose 124 H (74-99) mg/dL Total Bilirubin 1.5 H (0.2-1.3) mg/dL Procalcitonin (0.02-0.09) ng/mL Urine Protein (Negative) Urine Ketones (Negative) Urine Bilirubin (Negative) Urine WBC (0-5) /hpf Urine Bacteria (None) /hpf Urine Mucus (None) /hpf 06/01/21 06/01/21 06/02/21 Range/Units 18:26 20:54 03:04 WBC 11.0 H (3.8-10.6) k/uL RBC 3.75 L (4.30-5.90) m/uL Hgb 11.6 L (13.0-17.5) gm/dL Hct 35.4 L (39.0-53.0) % Plt Count 642 H (150-450) k/uL Neutrophils # 8.7 H (1.3-7.7) k/uL PT (9.0-12.0) sec INR (<1.2) APTT (22.0-30.0) sec D-Dimer (<0.60) mg/L FEU Carbon Dioxide (22-30) mmol/L Glucose (74-99) mg/dL Total Bilirubin (0.2-1.3) mg/dL Procalcitonin 0.32 H (0.02-0.09) ng/mL Urine Protein 3+ H (Negative) Urine Ketones 2+ H (Negative) Urine Bilirubin 1+ H (Negative) Urine WBC 13 H (0-5) /hpf Urine Bacteria Rare H (None) /hpf Urine Mucus Many H (None) /hpf 06/02/21 06/02/21 Range/Units 03:04 06:35 WBC 10.7 H (3.8-10.6) k/uL RBC 3.81 L (4.30-5.90) m/uL Hgb 11.9 L (13.0-17.5) gm/dL Hct 36.4 L (39.0-53.0) % Plt Count 579 H (150-450) k/uL Neutrophils # 8.4 H (1.3-7.7) k/uL PT 12.5 H (9.0-12.0) sec INR 1.2 H (<1.2) APTT 40.8 H (22.0-30.0) sec D-Dimer (<0.60) mg/L FEU Carbon Dioxide (22-30) mmol/L Glucose (74-99) mg/dL Total Bilirubin (0.2-1.3) mg/dL Procalcitonin (0.02-0.09) ng/mL Urine Protein (Negative) Urine Ketones (Negative) Urine Bilirubin (Negative) Urine WBC (0-5) /hpf Urine Bacteria (None) /hpf Urine Mucus (None) /hpf Microbiology - Last 24 Hours (Table) 06/01/21 18:26 Urine Culture - Preliminary Urine,Clean Catch Assessment and Plan Assessment: Bilateral pneumonia, mostly secondary to, COVID-19 however aust[place] virus test PCR came back negative last night. Bilateral pulmonary embolism Acute hypoxic respiratory failure Increase inflammatory markers Family history of blood clots Proteinuria Plan: This is a pleasant 40 years old male who presents with bilateral PE Continue with anticoagulation to oral Eliquis Pulmonary team consult recommended to stop antibiotics and start the patient on dexamethasone for 10 days starting on 06/02/2021. Repeat PROcalcitonin tomorrow Consult nephrology service for proteinuria Labs and medication were reviewed.. Continue same treatment. Continue with symptomatic treatment. Resume home medication. Monitor lytes and vitals. DVT and GI prophylaxis. Further recommendations depends on the clinical course of the patient DVT prophylaxis: Eliquis GI Prophylaxis: PPI Prognosis is guarded
--- NOTE | 2021-06-02 12:42 | US ---
EXAMINATION TYPE: US venous doppler duplex LE BI DATE OF EXAM: 06/02/2021 10:34 AM COMPARISON: NONE CLINICAL HISTORY: 40-year-old male PE post CoVID. No leg symptoms, had covid, elevated d-dimer, PE's SIDE PERFORMED: Bilateral TECHNIQUE: The lower extremity deep venous system is examined utilizing real time linear array sonog vanessa with graded compression, doppler sonography and color-flow sonography. FINDINGS: VESSELS IMAGED: Common Femoral Vein Deep Femoral Vein Greater Saphenous Vein * Femoral Vein Popliteal Vein Small Saphenous Vein * Proximal Calf Veins (* superficial vessels) Right Leg: Negative for DVT Left Leg: Negative for DVT IMPRESSION: No evidence for DVT within the bilateral lower extremities imaged from the groin to the upper calves.
[2021-06-02 18:58] LABS: Appearance,Urine Clear (Clear); Bilirubin,Urine Negative (Negative); Blood,Urine Negative (Negative); Color,Urine Yellow; Glucose,Urine (UA) Negative (Negative); Ketones,Urine Negative (Negative); Leukocyte Esterase,Urine Negative (Negative); Nitrite,Urine Negative (Negative); Protein,Urine Trace (Negative); Specific Gravity,Urine 1.014 (1.001-1.035)
[2021-06-03 03:27] LABS: Basophils % (A) 0 %; Eosinophils % (A) 0 %; HCT 35.5 % (39.0-53.0); HGB 11.6 gm/dL (13.0-17.5); Lymphocytes # (A) 0.6 k/uL (1.0-4.8); Lymphocytes % (A) 5 %; MCH 31.1 pg (25.0-35.0); MCHC 32.7 g/dL (31.0-37.0); MCV 95.2 fL (80.0-100.0); Mean Platelet Volume 7.3; Monocytes # (A) 0.8 k/uL (0-1.0); Monocytes % (A) 7 %; Neutrophils # (A) 9.6 k/uL (1.3-7.7); Neutrophils % (A) 86 %; Platelet Count 656 k/uL (150-450); RBC 3.73 m/uL (4.30-5.90); RDW 12.4 % (11.5-15.5); WBC 11.1 k/uL (3.8-10.6)
[2021-06-03 03:34] LABS: African American GFR (CKD) >90 (>60 ml/min/1.73 sqM); Anion Gap 6 mmol/L; Blood Urea Nitrogen 7 mg/dL (9-20); Calcium 8.5 mg/dL (8.4-10.2); Carbon Dioxide 23 mmol/L (22-30); Chloride 109 mmol/L (98-107); Glucose 161 mg/dL (74-99); LDH 636 U/L (313-618); Non-African American GFR(CKD) >90 (>60 ml/min/1.73 sqM); Potassium 4.4 mmol/L (3.5-5.1); Sodium 138 mmol/L (137-145)
[2021-06-03 04:10] LABS: C Reactive Protein 33.8 mg/dL (<1.0)
[2021-06-03] MEDS: PANTOPRAZOLE 40 MG/10 ML VIAL IV SCH (09:12)
[2021-06-03] MEDS: dexAMETHasone 2 MG TAB PO SCH (09:13)
[2021-06-03] MEDS: APIXABAN 5 MG TAB PO SCH ×2 (09:14→20:50)
[2021-06-03] MEDS: SODIUM CHLORIDE 0.9% 1,000 ML IV SCH (09:16)
--- NOTE | 2021-06-03 11:36 | P.PN ---
Subjective This is a pleasant 40 is old male with no significant past medical history presents because of dyspnea and right side chest pain. He presents because of for some dyspnea and right sided chest pain since May 26 or , patient states that he's been exposed and diagnosed with Darren infection on May 13 although there is no documentation or system. This has some mild symptoms and improved but then he started developing abdominal pain a nd he has visited the emergency room on May 23 for abdominal pain. He was discharged and then returned to emergency room on 05/26 for some dyspnea and coughing, and he was saturating well so he was discharged and asked to monitor his oxygen saturation however since then his symptoms started getting worse. Also he has some hemoptysis Today is lying in bed in mild distress due to his tachypnea and chest pain, he can talk freely with no interruption. He feels generally weak and exhausted, no dysuria or urgency, no headache or dizziness, no abdominal pain, he has some low appetite and mild diarrhea He used to smoke about 1 pack per day and quit on 05/14. No alcohol or illicit drugs. On admission he was tachycardic a heart rate R rote 100 220, afebrile, saturating 96% on 2 L oxygen via nasal cannula. Labs showing mild leukocytosis 11, hemoglobin 11.6 and high platelet count 642. INR is 1.2 Priorcalcitonin is elevated at 0.32.. Proteinuria was noted also on the previous 2 samples from 05/23 and 05/26 Urine analysis showing 3+ protein, 2+ ketones and 1+ bilirubin, [place] virus not detected Chest x-ray: Worsening bilateral basal infiltrates with small right pleural effusion CTA of the chest: Acute bilateral pulmonary embolism involving the lower lobes with small clot burden. Diffuse airspace opacity consistent with atypical pneumonia Echocardiogram: Ejection fraction of 60-65% 06/03/2021 Patient still feels very lethargic and malaise. His dyspnea is slightly better however he is still in bed with no exertion. He still but tachycardic. Labs reviewed he has mild leukocytosis 11.1. Echocardiogram showing ejection fraction of 60-65%. Repeat PROcalcitonin showing trending down to 0.18 without antibiotic Urine analysis is negative with only trace proteinuria therefore no need currently for nephrology consult Dermis on dexamethasone, Eliquis therapeutic dose at 10 mg twice a day. Continue gentle hydration Objective - Vital Signs Vital signs: Vital Signs Temp 97.7 F 06/03/21 09:00 Pulse 105 H 06/03/21 09:00 Resp 16 06/03/21 09:00 BP 140/89 06/03/21 09:00 Pulse Ox 95 06/03/21 09:00 Intake & Output 06/02/21 06/03/21 06/03/21 18:59 06:59 18:59 Output Total 1 Balance -1 Weight 81.647 kg Output: Urine 1 - Exam GENERAL: The patient is alert and oriented x3, not in any acute distress. Well developed, well nourished. HEENT: Pupils are round and equally reacting to light. EOMI. No scleral icterus. No conjunctival pallor. Normocephalic, atraumatic. No pharyngeal erythema. No thyromegaly. CARDIOVASCULAR: S1 and S2 present. No murmurs, rubs, or gallops. PULMONARY: Chest is clear to auscultation, no wheezing or crackles. ABDOMEN: Soft, nontender, nondistended, normoactive bowel sounds. No palpable organomegaly. MUSCULOSKELETAL: No joint swelling or deformity. EXTREMITIES: No cyanosis, clubbing, or pedal edema. NEUROLOGICAL: Gross neurological examination did not reveal any focal deficits. SKIN: No rashes. no petechiae. - Labs CBC & Chem 7: 06/03/21 03:01 06/03/21 03:01 Labs: Abnormal Lab Results - Last 24 Hours (Table) 06/02/21 06/03/21 06/03/21 Range/Units 18:20 03:01 03:01 WBC (3.8-10.6) k/uL RBC (4.30-5.90) m/uL Hgb (13.0-17.5) gm/dL Hct (39.0-53.0) % Plt Count (150-450) k/uL Neutrophils # (1.3-7.7) k/uL Lymphocytes # (1.0-4.8) k/uL Chloride 109 H (98-107) mmol/L BUN 7 L (9-20) mg/dL Creatinine 0.56 L (0.66-1.25) mg/dL Glucose 161 H (74-99) mg/dL Lactate Dehydrogenase 636 H (313-618) U/L C-Reactive Protein 33.8 H (<1.0) mg/dL Procalcitonin 0.18 H (0.02-0.09) ng/mL Urine Protein Trace H (Negative) 06/03/21 Range/Units 03:01 WBC 11.1 H (3.8-10.6) k/uL RBC 3.73 L (4.30-5.90) m/uL Hgb 11.6 L (13.0-17.5) gm/dL Hct 35.5 L (39.0-53.0) % Plt Count 656 H (150-450) k/uL Neutrophils # 9.6 H (1.3-7.7) k/uL Lymphocytes # 0.6 L (1.0-4.8) k/uL Chloride (98-107) mmol/L BUN (9-20) mg/dL Creatinine (0.66-1.25) mg/dL Glucose (74-99) mg/dL Lactate Dehydrogenase (313-618) U/L C-Reactive Protein (<1.0) mg/dL Procalcitonin (0.02-0.09) ng/mL Urine Protein (Negative) Microbiology - Last 24 Hours (Table) 06/01/21 19:10 Blood Culture - Preliminary Blood No Growth after 24 hours 06/01/21 18:50 Blood Culture - Preliminary Blood No Growth after 24 hours 06/01/21 18:26 Urine Culture - Final Urine,Clean Catch Assessment and Plan Assessment: Bilateral pneumonia, mostly secondary to, COVID-19 however austin virus test PCR came back negative last night. Bilateral pulmonary embolism Acute hypoxic respiratory failure Increase inflammatory markers Family history of blood clots Proteinuria Plan: This is a pleasant 40 years old male who presents with bilateral PE Continue with anticoagulation to oral Eliquis Pulmonary team consult recommended to stop antibiotics and start the patient on dexamethasone for 10 days starting on 06/02/2021. proteinuria Labs and medication were reviewed.. Continue same treatment. Continue with symptomatic treatment. Resume home medication. Monitor lytes and vitals. DVT and GI prophylaxis. Further recommendations depends on the clinical course of the patient DVT prophylaxis: Eliquis GI Prophylaxis: PPI Prognosis is guarded
--- NOTE | 2021-06-03 17:56 | P.PN ---
Subjective Progress Note Date: 06/03/21 A 40-year-old male patient who presented to the [facility] to yesterday because of worsening shortness of breath, and some symptoms of pleurisy as the patient was having some pain across the right side of the chest radiating to his back especially with deep breathing. He did have a cough without much of any sputum production. No reported fever or chills. His condition was getting worse and for that reason the patient decided to come in to the emergency department. In the ED, the patient was still having right-sided achy chest wall pain. D-dimer was elevated and the level came back at 5.36. Based on that, there was a high suspicion for pulmonary embolism. The patient was given a CT angiogram and the patient was found to have bilateral pulmonary embolism involving the segmental and subsegmental branches of the lower lobes bilaterally with a small clot burden. There was still diffuse airspace disease bilaterally consistent with community related pneumonia and probably the infiltrates were slightly worse compared to the previous CAT scan of the chest that was done on 05/26/2020. Note that at that time, the patient had COVID 19 infection and his original infection was on 05/14/2021. He was not hospitalized. He was seen in our emergency department on 05/26/2021 for symptoms of abdominal pain and body aches and diminished appetite. He denies having any major respiratory difficulties at that point in time. The patient was seen by the emergency physicians and the patient was discharged home while being given a combination of vitamin D and vitamin C and zinc and he was asked to come back to the emergency should there be a drop in his oxygenation or worsening in her respiratory status. At this point in time, the patient on IV heparin. Lisinopril 10.7 and hemoglobin of 11.9. The repeat COVID 19 testing was negative. Pro-Level Was at 0.32. Electrolytes Are All within Normal Limits. UA Showing Positive Protein, +2 Ketones and Platelet Count Is at 579. He Is Afebrile. Currently Is on 2 L of Oxygen to Bring His Pulse Ox at 97%. Room Air Pulse Ox Has Been Also Stable Some Were between 96 and 98%. 06/03/2021 on seeing the patient for a follow-up. The patient is quite stable on room air oxygen. He is feeling well. He has no specific complaints. No significant chest pain or pleurisy. The patient is currently on anticoagulation and the patient is currently on Eliquis 10 mg by mouth twice a day. IV heparin has been discontinued. The patient is also on Decadron 6 mg on a daily basis. His repeat cognitive testing came back negative and the chest x-ray and a computed tomography scan of the chest showed residual inflammatory changes secondary to code 19. LDH level is at 636. CRP level is 33.8. Pro-calcitonin level is at 0.18. The patient's white cell count is 11 with a hemoglobin 11.6 and a platelet count of 656. Objective - Vital Signs Vital signs: Vital Signs Temp 97.7 F 06/03/21 15: Pulse 100 06/03/21 15: Resp 18 06/03/21 15:22 BP 135/92 06/03/21 15:22 Pulse Ox 94 L 06/03/21 15:22 Intake & Output 06/02/21 06/03/21 06/03/21 18:59 06:59 18:59 Intake Total 480 Output Total 1 Balance -1 480 Weight 81.647 kg Intake: Oral 480 Output: Urine 1 Other: # Voids 2 - Exam General appearance: alert, in no apparent distress, on room air oxygen Head exam: Present: atraumatic, normocephalic, normal inspection Eye exam: Present: normal appearance, EOMI. Absent: scleral icterus, conjunctival injection, periorbital swelling, periorbital tenderness ENT exam: Present: normal exam, normal oropharynx, mucous membranes moist Neck exam: Present: normal inspection, full ROM. Absent: tenderness, meningismus, lymphadenopathy, thyromegaly Respiratory exam: Present: rales ([place]), decreased breath sounds (Diminished at the bases) Cardiovascular Exam: Present: tachycardia. Absent: JVD GI/Abdominal exam: Present: soft, normal bowel sounds. Absent: distended, tenderness, guarding, rebound, rigid Extremities exam: Present: normal inspection, full ROM, normal capillary refill. Absent: tenderness, pedal edema, joint swelling, calf tenderness Back exam: Present: normal inspection, full ROM, tenderness. Absent: CVA ten derness (R) (Right side), CVA tenderness (L), rash noted Neurological exam: Present: alert, oriented X3 Psychiatric exam: Present: normal affect, normal mood Skin exam: Present: warm, dry, intact, normal color. Absent: cyanosis, diaphoretic, erythema, petechiae, pallor - Labs CBC & Chem 7: 06/03/21 03:01 06/03/21 03:01 Labs: Abnormal Lab Results - Last 24 Hours (Table) 06/02/21 06/03/21 06/03/21 Range/Units 18:20 03:01 03:01 WBC (3.8-10.6) k/uL RBC (4.30-5.90) m/uL Hgb (13.0-17.5) gm/dL Hct (39.0-53.0) % Plt Count (150-450) k/uL Neutrophils # (1.3-7.7) k/uL Lymphocytes # (1.0-4.8) k/uL Chloride 109 H (98-107) mmol/L BUN 7 L (9-20) mg/dL Creatinine 0.56 L (0.66-1.25) mg/dL Glucose 161 H (74-99) mg/dL Lactate Dehydrogenase 636 H (313-618) U/L C-Reactive Protein 33.8 H (<1.0) mg/dL Procalcitonin 0.18 H (0.02-0.09) ng/mL Urine Protein Trace H (Negative) 06/03/21 Range/Units 03:01 WBC 11.1 H (3.8-10.6) k/uL RBC 3.73 L (4.30-5.90) m/uL Hgb 11.6 L (13.0-17.5) gm/dL Hct 35.5 L (39.0-53.0) % Plt Count 656 H (150-450) k/uL Neutrophils # 9.6 H (1.3-7.7) k/uL Lymphocytes # 0.6 L (1.0-4.8) k/uL Chloride (98-107) mmol/L BUN (9-20) mg/dL Creatinine (0.66-1.25) mg/dL Glucose (74-99) mg/dL Lactate Dehydrogenase (313-618) U/L C-Reactive Protein (<1.0) mg/dL Procalcitonin (0.02-0.09) ng/mL Urine Protein (Negative) Microbiology - Last 24 Hours (Table) 06/01/21 19:10 Blood Culture - Preliminary Blood No Growth after 24 hours 06/01/21 18:50 Blood Culture - Preliminary Blood No Growth after 24 hours 06/01/21 18:26 Urine Culture - Final Urine,Clean Catch Assessment and Plan Plan: 1 acute pulmonary embolism. The patient had a CT angiogram that showed bilateral pulmonary embolism involving lower lobe pulmonary arteries. Risk factors include COVID 19 infection that occurred on 05/13/2021 and since then the patient has been essentially sedentary. He does have a family history for pulmonary embolism as his mother has been diagnosed having blood clots. The patient is currently on oral anticoagulation with Eliquis. IV heparin was discontinued. Doppler of the lower extremity has been negative. 2 COVID 19 related pneumonia with persistent bilateral pulmonary infiltrates, with probable some interval worsening in the pulmonary infiltration compared to the earlier evaluations 3 vertigo right-sided chest wall pain secondary to above 4 dyspnea cough secondary to above 5 smoker Plan Keep the patient on room air oxygen Anticoagulation with Eliquis protocol Check Doppler of the lower extremities were checked and they were negative Check echocardiogram showed a preserved LV function and no evidence of any pulmonary hypertension The patient continues to have persistent bilateral pulmonary infiltration. He may benefit from a round of steroids. Continue Decadron 6 mg for the next 10 days. No indication for pneumonia and this is a sequelae of the COVID 19 related infection/pneumonia complicated further by pulmonary embolism. Possible discharge in the next 24 hours
[2021-06-04] MEDS: PANTOPRAZOLE 40 MG/10 ML VIAL IV SCH (09:20)
[2021-06-04] MEDS: dexAMETHasone 2 MG TAB PO SCH (09:20)
[2021-06-04] MEDS: APIXABAN 5 MG TAB PO SCH ×2 (09:20→20:52)
--- NOTE | 2021-06-04 14:27 | XR ---
EXAMINATION TYPE: XR chest 1V portable DATE OF EXAM: 06/04/2021 Comparison: 06/01/2021 Clinical History: 40-year-old male with pulmonary emboli and covid Findings: Heart normal size. Aorta and pulmonary vascularity within normal limits. Continued airspace disease i n the periphery of the mid and lower lungs and small right pleural effusion, not significantly change d. Impression: Stable bilateral mid and lower lung COVID pneumonia with small right pleural effusion.
--- NOTE | 2021-06-04 17:29 | P.PN ---
Subjective Progress Note Date: 06/04/21 A 40-year-old male patient who presented to the [facility] 5 to yesterday because of worsening shortness of breath, and some symptoms of pleurisy as the patient was having some pain across the right side of the chest radiating to his back especially with deep breathing. He did have a cough without much of any sputum production. No reported fever or chills. His condition was getting worse and for that reason the patient decided to come in to the emergency department. In the ED, the patient was still having right-sided achy chest wall pain. D-dimer was elevated and the level came back at 5.36. Based on that, there was a high suspicion for pulmonary embolism. The patient was given a CT angiogram and the patient was found to have bilateral pulmonary embolism involving the segmental and subsegmental branches of the lower lobes bilaterally with a small clot burden. There was still diffuse airspace disease bilaterally consistent with community related pneumonia and probably the infiltrates were slightly worse compared to the previous CAT scan of the chest that was done on 05/26/2020. Note that at that time, the patient had COVID 19 infection and his original infection was on 05/14/2021. He was not hospitalized. He was seen in our emergency department on 05/26/2021 for symptoms of abdominal pain and body aches and diminished appetite. He denies having any major respiratory difficulties at that point in time. The patient was seen by the emergency physicians and the patient was discharged home while being given a combination of vitamin D and vitamin C and zinc and he was asked to come back to the emergency should there be a drop in his oxygenation or worsening in her respiratory status. At this point in time, the patient on IV heparin. Lisinopril 10.7 and hemoglobin of 11.9. The repeat COVID 19 testing was negative. Pro-Level Was at 0.32. Electrolytes Are All within Normal Limits. UA Showing Positive Protein, +2 Ketones and Platelet Count Is at 579. He Is Afebrile. Currently Is on 2 L of Oxygen to Bring His Pulse Ox at 97%. Room Air Pulse Ox Has Been Also Stable Some Were between 96 and 98%. 06/03/2021 on seeing the patient for a follow-up. The patient is quite stable on room air oxygen. He is feeling well. He has no specific complaints. No significant chest pain or pleurisy. The patient is currently on anticoagulation and the patient is currently on Eliquis 10 mg by mouth twice a day. IV heparin has been discontinued. The patient is also on Decadron 6 mg on a daily basis. His repeat cognitive testing came back negative and the chest x-ray and a computed tomography scan of the chest showed residual inflammatory changes secondary to code 19. LDH level is at 636. CRP level is 33.8. Pro-calcitonin level is at 0.18. The patient's white cell count is 11 with a hemoglobin 11.6 and a platelet count of 656. 06/06/2021, the patient is stable. He did have a minor bouts of hemoptysis with blood tinged mucus. The patient was kept on anti-correlation with Eliquis stomach Viry twice a day. Otherwise, the patient remains hemodynamically stable. The patient remains on Decadron 6 mg by mouth daily. Chest x-ray showed patchy bilateral pulmonary infiltrates a residual of the previously established COVID 19 related pneumonia. The patient tested again negative for COVID 19. He is on room air oxygen. No chest pain. No nausea vomiting or abdominal pain. No other significant events overnight. Objective - Vital Signs Vital signs: Vital Signs Temp 97.7 F 06/04/21 16:00 Pulse 98 06/04/21 16:00 Resp 17 06/04/21 16:00 BP 141/96 06/04/21 16:00 Pulse Ox 96 06/04/21 16:00 Intake & Output 06/03/21 06/04/21 06/04/21 18:59 06:59 18:59 Intake Total 022 77 2685 Balance 940 30 1334 Intake: IV 10 Invasive Line 1 10 Oral 960 1280 Other: Voiding Method Toilet Toilet # Voids 2 1 - Exam General appearance: alert, in no apparent distress, on room air oxygen Head exam: Present: atraumatic, normocephalic, normal inspection Eye exam: Present: normal appearance, EOMI. Absent: scleral icterus, conjunctival injection, periorbital swelling, periorbital tenderness ENT exam: Present: normal exam, normal oropharynx, mucous membranes moist Neck exam: Present: normal inspection, full ROM. Absent: tenderness, meningismus, lymphadenopathy, thyromegaly Respiratory exam: Present: rales ([place]), decreased breath sounds (Diminished at the bases) Cardiovascular Exam: Present: tachycardia. Absent: JVD GI/Abdominal exam: Present: soft, normal bowel sounds. Absent: distended, tenderness, guarding, rebound, rigid Extremities exam: Present: normal inspection, full ROM, normal capillary refill. Absent: tenderness, pedal edema, joint swelling, calf tenderness Back exam: Present: normal inspection, full ROM, tenderness. Absent: CVA tenderness (R) (Right side), CVA tenderness (L), rash noted Neurological exam: Present: alert, oriented X3 Psychiatric exam: Present: normal affect, normal mood Skin exam: Present: warm, dry, intact, normal color. Absent: cyanosis, diaphoretic, erythema, petechiae, pallor - Labs CBC & Chem 7: 06/03/21 03:01 06/03/21 03:01 Labs: Microbiology - Last 24 Hours (Table) 06/01/21 19:10 Blood Culture - Preliminary Blood No Growth after 48 hours 06/01/21 18:50 Blood Culture - Preliminary Blood No Growth after 48 hours Assessment and Plan Plan: 1 acute pulmonary embolism. The patient had a CT angiogram that showed bilateral pulmonary embolism involving lower lobe pulmonary arteries. Risk factors include COVID 19 infection that occurred on 05/13/2021 and since then the patient has been essentially sedentary. He does have a family history for pulmonary embolism as his mother has been diagnosed having blood clots. The patient is currently on oral anticoagulation with Eliquis. IV heparin was discontinued. Doppler of the lower extremity has been negative. This morning, the patient complained of some limited hemoptysis as will be monitored. At evaluation will be continued. The patient is currently off IV heparin and the patient is currently on Eliquis. 2 COVID 19 related pneumonia with persistent bilateral pulmonary infiltrates, with probable some interval worsening in the pulmonary infiltration compared to the earlier evaluations 3 vertigo right-sided chest wall pain secondary to above 4 dyspnea cough secondary to above 5 smoker Plan Keep the patient on room air oxygen Anticoagulation with Eliquis protocol Monitor hemoptysis Check Doppler of the lower extremities were checked and they were negative Check echocardiogram showed a preserved LV function and no evidence of any pulmonary hypertension The patient continues to have persistent bilateral pulmonary infiltration. He may benefit from a round of steroids. Continue Decadron 6 mg for the next 10 days. No indication for pneumonia and this is a sequelae of the COVID 19 related infection/pneumonia complicated further by pulmonary embolism. Possible discharge in the next 24 hours
--- NOTE | 2021-06-04 19:52 | P.PN ---
Subjective This is a pleasant 40 is old male with no significant past medical history presents because of dyspnea and right side chest pain. He presents because of for some dyspnea and right sided chest pain since May 26 or , patient states that he's been exposed and diagnosed with Darren infection on May 13 although there is no documentation or system. This has some mild symptoms and improved but then he started developing abdominal pain a nd he has visited the emergency room on May 23 for abdominal pain. He was discharged and then returned to emergency room on 05/26 for some dyspnea and coughing, and he was saturating well so he was discharged and asked to monitor his oxygen saturation however since then his symptoms started getting worse. Also he has some hemoptysis Today is lying in bed in mild distress due to his tachypnea and chest pain, he can talk freely with no interruption. He feels generally weak and exhausted, no dysuria or urgency, no headache or dizziness, no abdominal pain, he has some low appetite and mild diarrhea He used to smoke about 1 pack per day and quit on 05/14. No alcohol or illicit drugs. On admission he was tachycardic a heart rate R rote 100 220, afebrile, saturating 96% on 2 L oxygen via nasal cannula. Labs showing mild leukocytosis 11, hemoglobin 11.6 and high platelet count 642. INR is 1.2 Priorcalcitonin is elevated at 0.32.. Proteinuria was noted also on the previous 2 samples from 05/23 and 05/26 Urine analysis showing 3+ protein, 2+ ketones and 1+ bilirubin, [place] virus not detected Chest x-ray: Worsening bilateral basal infiltrates with small right pleural effusion CTA of the chest: Acute bilateral pulmonary embolism involving the lower lobes with small clot burden. Diffuse airspace opacity consistent with atypical pneumonia Echocardiogram: Ejection fraction of 60-65% 06/03/2021 Patient still feels very lethargic and malaise. His dyspnea is slightly better however he is still in bed with no exertion. He still but tachycardic. Labs reviewed he has mild leukocytosis 11.1. Echocardiogram showing ejection fraction of 60-65%. Repeat PROcalcitonin showing trending down to 0.18 without antibiotic Urine analysis is negative with only trace proteinuria therefore no need currently for nephrology consult Dermis on dexamethasone, Eliquis therapeutic dose at 10 mg twice a day. Continue gentle hydration 06/04/2021 Patient very comfortable s lying in bed, general he feels better although he has some mild tachypnea he is saturating 95% on room air. He is slightly tachycardic which is gradually improving. No labs today. Repeat chest x-ray shows stable bilateral middle lower zone lung consolidation with right pleural effusion. He remains on Eliquis therapeutic dose at 10 mg twice a day with a total of 7 days before it will be lowered to 5 mg, patient informed and he agrees. Also explained to him the risk & benefits of anticoagulation and pulmonary embolism and he verbalized understanding and acceptance to continue with Eliquis Patient also is on dexamethasone, also he is on vitamin C, vitamin D and zinc. Check copay for Eliquis. Give him one more day per pulmonary team recommendation Objective - Vital Signs Vital signs: Vital Signs Temp 98.0 F 06/04/21 04:00 Pulse 97 06/04/21 04:00 Resp 16 06/04/21 04:00 BP 129/89 06/04/21 04:00 Pulse Ox 95 06/04/21 04:00 Intake & Output 06/03/21 06/04/21 06/04/21 18:59 06:59 18:59 Intake Total 960 10 Balance 960 10 Intake: IV 10 Invasive Line 1 10 Oral 960 Other: Voiding Method Toilet # Voids 2 1 - Exam GENERAL: The patient is alert and oriented x3, not in any acute distress. Well developed, well nourished. HEENT: Pupils are round and equally reacting to light. EOMI. No scleral icterus. No conjunctival pallor. Normocephalic, atraumatic. No pharyngeal erythema. No thyromegaly. CARDIOVASCULAR: S1 and S2 present. No murmurs, rubs, or gallops. PULMONARY: Chest is clear to auscultation, no wheezing or crackles. ABDOMEN: Soft, nontender, nondistended, normoactive bowel sounds. No palpable organomegaly. MUSCULOSKELETAL: No joint swelling or deformity. EXTREMITIES: No cyanosis, clubbing, or pedal edema. NEUROLOGICAL: Gross neurological examination did not reveal any focal deficits. SKIN: No rashes. no petechiae. - Labs CBC & Chem 7: 06/03/21 03:01 06/03/21 03:01 Labs: Microbiology - Last 24 Hours (Table) 06/01/21 19:10 Blood Culture - Preliminary Blood No Growth after 48 hours 06/01/21 18:50 Blood Culture - Preliminary Blood No Growth after 48 hours Assessment and Plan Assessment: Bilateral pneumonia, mostly secondary to, COVID-19 however [place] virus test PCR came back negative last night. Bilateral pulmonary embolism Acute hypoxic respiratory failure Increase inflammatory markers Family history of blood clots Proteinuria Plan: This is a pleasant 40 years old male who presents with bilateral PE Continue with anticoagulation to oral Eliquis Pulmonary team consult recommended to stop antibiotics and start the patient on dexamethasone for 10 days starting on 06/02/2021. proteinuria improved Continue with vitamin C, D and zinc Labs and medication were reviewed.. Continue same treatment. Continue with symptomatic treatment. Resume home medication. Monitor lytes and vitals. DVT and GI prophylaxis. Further recommendations depends on the clinical course of the patient DVT prophylaxis: Eliquis GI Prophylaxis: PPI Possible discharge in 24-48 hours if he keeps improving
[2021-06-04] MEDS: ASCORBIC ACID 500 MG TAB PO SCH (20:52)
[2021-06-04 22:48] VITALS: RESP 18
[2021-06-05] MEDS ORDERED: CHOLECALCIFEROL 125 MCG (5000 IU) TABLET PO SCH (09:00)
[2021-06-05] MEDS ORDERED: ZINC SULFATE 220 MG CAP PO SCH (09:00)
[2021-06-05] MEDS: APIXABAN 5 MG TAB PO SCH (09:17)
[2021-06-05] MEDS: dexAMETHasone 2 MG TAB PO SCH (09:17)
[2021-06-05] MEDS: ASCORBIC ACID 500 MG TAB PO SCH (09:17)
[2021-06-05] MEDS: PANTOPRAZOLE 40 MG/10 ML VIAL IV SCH (09:18)
[2021-06-05 09:28] VITALS: BP 127/92; PULSE 114; TEMP 97.7
--- NOTE | 2021-06-05 14:48 | P.PN ---
Subjective Progress Note Date: 06/05/21 A 40-year-old male patient who presented to the [facility] 5 to yesterday because of worsening shortness of breath, and some symptoms of pleurisy as the patient was having some pain across the right side of the chest radiating to his back especially with deep breathing. He did have a cough without much of any sputum production. No reported fever or chills. His condition was getting worse and for that reason the patient decided to come in to the emergency department. In the ED, the patient was still having right-sided achy chest wall pain. D-dimer was elevated and the level came back at 5.36. Based on that, there was a high suspicion for pulmonary embolism. The patient was given a CT angiogram and the patient was found to have bilateral pulmonary embolism involving the segmental and subsegmental branches of the lower lobes bilaterally with a small clot burden. There was still diffuse airspace disease bilaterally consistent with community related pneumonia and probably the infiltrates were slightly worse compared to the previous CAT scan of the chest that was done on 05/26/2020. Note that at that time, the patient had COVID 19 infection and his original infection was on 05/14/2021. He was not hospitalized. He was seen in our emergency department on 05/26/2021 for symptoms of abdominal pain and body aches and diminished appetite. He denies having any major respiratory difficulties at that point in time. The patient was seen by the emergency physicians and the patient was discharged home while being given a combination of vitamin D and vitamin C and zinc and he was asked to come back to the emergency should there be a drop in his oxygenation or worsening in her respiratory status. At this point in time, the patient on IV heparin. Lisinopril 10.7 and hemoglobin of 11.9. The repeat COVID 19 testing was negative. Pro-Level Was at 0.32. Electrolytes Are All within Normal Limits. UA Showing Positive Protein, +2 Ketones and Platelet Count Is at 579. He Is Afebrile. Currently Is on 2 L of Oxygen to Bring His Pulse Ox at 97%. Room Air Pulse Ox Has Been Also Stable Some Were between 96 and 98%. 06/03/2021 on seeing the patient for a follow-up. The patient is quite stable on room air oxygen. He is feeling well. He has no specific complaints. No significant chest pain or pleurisy. The patient is currently on anticoagulation and the patient is currently on Eliquis 10 mg by mouth twice a day. IV heparin has been discontinued. The patient is also on Decadron 6 mg on a daily basis. His repeat cognitive testing came back negative and the chest x-ray and a computed tomography scan of the chest showed residual inflammatory changes secondary to code 19. LDH level is at 636. CRP level is 33.8. Pro-calcitonin level is at 0.18. The patient's white cell count is 11 with a hemoglobin 11.6 and a platelet count of 656. 06/06/2021, the patient is stable. He did have a minor bouts of hemoptysis with blood tinged mucus. The patient was kept on anti-correlation with Eliquis stomach Viry twice a day. Otherwise, the patient remains hemodynamically stable. The patient remains on Decadron 6 mg by mouth daily. Chest x-ray showed patchy bilateral pulmonary infiltrates a residual of the previously established COVID 19 related pneumonia. The patient tested again negative for COVID 19. He is on room air oxygen. No chest pain. No nausea vomiting or abdominal pain. No other significant events overnight. 06/05/2021, the patient is doing well. No hemoptysis. Remains on anticoagulation with Eliquis. No respiratory distress for now. The patient is doing extremely well. The patient is hemodynamically stable.the patient is tolerating the anticoagulation without any major difficulties. BUN is a family creatinine 0.7. Platelet count is up to 83. The white cell count is at 8.2 with a hemoglobin of 11.8.while on 4 L about 2 by nasal cannula, the pulse ox is around 98%. The patient has home O2. Objective - Vital Signs Vital signs: Vital Signs Temp 97.7 F 06/05/21 09:15 Pulse 114 H 06/05/21 09:15 Resp 18 06/05/21 09:15 BP 127/92 06/05/21 09:15 Pulse Ox 94 L 06/05/21 09:15 Intake & Output 06/04/21 06/05/21 06/05/21 18:59 06:59 18:59 Intake Total 1520 10 360 Balance 1520 10 360 Intake: IV 10 Invasive Line 1 10 Oral 1520 360 Other: Voiding Method Toilet Toilet Toilet # Voids 2 - Exam General appearance: alert, in no apparent distress, on 4 L nasal cannula at home, currently on room air oxygen. Head exam: Present: atraumatic, normocephalic, normal inspection Eye exam: Present: normal appearance, EOMI. Absent: scleral icterus, conjunctival injection, periorbital swelling, periorbital tenderness ENT exam: Present: normal exam, normal oropharynx, mucous membranes moist Neck exam: Present: normal inspection, full ROM. Absent: tenderness, meningismus, lymphadenopathy, thyromegaly Respiratory exam: Present: rales ([place]), decreased breath sounds (Diminished at the bases) Cardiovascular Exam: Present: tachycardia. Absent: JVD GI/Abdominal exam: Present: soft, normal bowel sounds. Absent: distended, tenderness, guarding, rebound, rigid Extremities exam: Present: normal inspection, full ROM, normal capillary refill. Absent: tenderness, pedal edema, joint swelling, calf tenderness Back exam: Present: normal inspection, full ROM, tenderness. Absent: CVA tenderness (R) (Right side), CVA tenderness (L), rash noted Neurological exam: Present: alert, oriented X3 Psychiatric exam: Present: normal affect, normal mood Skin exam: Present: warm, dry, intact, normal color. Absent: cyanosis, diaphoretic, erythema, petechiae, pallor - Labs CBC & Chem 7: 06/03/21 03:01 06/03/21 03:01 Labs: Microbiology - Last 24 Hours (Table) 06/01/21 19:10 Blood Culture - Preliminary Blood No Growth after 72 hours 06/01/21 18:50 Blood Culture - Preliminary Blood No Growth after 72 hours Assessment and Plan Plan: 1 acute pulmonary embolism. The patient had a CT angiogram that showed bilateral pulmonary embolism involving lower lobe pulmonary arteries. Risk factors include COVID 19 infection that occurred on 05/13/2021 and since then the patient has been essentially sedentary. He does have a family history for pulmonary embolism as his mother has been diagnosed having blood clots. The patient is currently on oral anticoagulation with Eliquis. clinically stable on room air oxygen. 2 COVID 19 related pneumonia with persistent bilateral pulmonary infiltrates, with probable some interval worsening in the pulmonary infiltration compared to the earlier evaluations 3 vertigo right-sided chest wall pain secondary to above 4 dyspnea cough secondary to above 5 smoker Plan Keep the patient on room air oxygen, the patient has home O2 continue Eliquis for anticoagulation Monitor hemoptysis, currently inactive in stable Check Doppler of the lower extremities were checked and they were negative Check echocardiogram showed a preserved LV function and no evidence of any pulmonary hypertension patient has home O2 Discharge home today to be followed up on outpatient basis.
--- NOTE | 2021-06-05 22:00 | P.DS ---
Providers Date of admission: 06/01/21 20:38 Attending physician: Jas Gilmore Consults: 06/01/21 20:51 Consult Physician Routine Consulting Provider: Bahman Gutierres Consult Reason/Comments: Bilateral pulmonary embolism Do you want consulting provider notified?: Already Contacted Primary care physician: Stated None Hospital Course: Diagnoses Bilateral pneumonia, mostly secondary to, COVID-19 however [place] virus test PCR came back negative last night. Bilateral pulmonary embolism Acute hypoxic respiratory failure, completely resolved upon discharge Increase inflammatory markers Family history of blood clots Proteinuria, related to his infection, resolved Hospital course: This is a pleasant 40 is old male with no significant past medical history presents because of dyspnea and right side chest pain. He presents because of for some dyspnea and right sided chest pain found to have bilateral pulmonary embolism and bilateral Covid pneumonia with mild hypoxic respiratory failure. Patient has been evaluated by anesthesiology technologist Vicky was treated with anticoagulation heparin drip and switched to Eliquis 10 mg twice a day by 7 days followed by 5 mg twice a day, as well as dexamethasone, vitamin C, D and zinc. Patient showed interval improvement and on the day of discharge he was fully awake and oriented, was saturating 96% on room air. He denies any chest pain or dyspnea. No coughing. No change in urine or bowel habits. No fever. Patient was scheduled for discharge by anesthesiology technologist Problems and management plan were discussed with the patient and he verbalized understanding and acceptance Patient was found stable and can be discharged home however he needs follow-up as an outpatient. Patient was instructed to follow up with PCP within one week and patient agrees. Patient did not have PCP but he made arrangements to follow-up with one upon discharge Patient was instructed to follow up with anesthesiology technologist Dr. Gutierres in 2 weeks and he agrees to call and make his own appointments Note: His co-pay for Eliquis is $550, social worker clinical/employment evaluator/case manager and I talked to the patient and he told both of us is agreeable for his co-pay. On the top of that 1 month supply of f medicatio Coupon is provided for him. Physical exam Gen: patient is a AAOx3, no distress CVS: S1-S2, RRR, no murmur Lungs: B/L CTA, no wheezing Abdomen: soft, no distention, no tenderness, positive bowel sounds Extremity: no leg edema or induration Time spent more than 35 minutes Plan - Discharge Summary Discharge Rx Participant: No New Discharge Prescriptions: New Apixaban [Eliquis] 5 mg PO DIRECTED #60 tab Cholecalciferol [Vitamin D3 (125 Mcg = 5000 Iu)] 125 mcg PO DAILY #30 tablet Zinc Sulfate [Orazinc] 220 mg PO DAILY #30 cap Ascorbic Acid [Vitamin C] 500 mg PO BID #60 tab Dexamethasone [Decadron] 6 mg PO DAILY 6 Days #6 tablet Continue Ondansetron Odt [Zofran ODT] 4 mg PO Q8H PRN PRN Reason: Nausea Discharge Medication List Ondansetron Odt [Zofran ODT] 4 mg PO Q8H PRN 06/01/21 [History] Apixaban [Eliquis] 5 mg PO DIRECTED #60 tab 06/04/21 [Rx] Ascorbic Acid [Vitamin C] 500 mg PO BID #60 tab 06/05/21 [Rx] Cholecalciferol [Vitamin D3 (125 Mcg = 5000 Iu)] 125 mcg PO DAILY #30 tablet 06/05/21 [Rx] Dexamethasone [Decadron] 6 mg PO DAILY 6 Days #6 tablet 06/05/21 [Rx] Zinc Sulfate [Orazinc] 220 mg PO DAILY #30 cap 06/05/21 [Rx] Follow up Appointment(s)/Referral(s): None,Stated [Primary Care Provider] - 1-2 days Bahman Gutierres MD [STAFF PHYSICIAN] - 06/26/21 2:45 pm (With Zoya Danielson NP) Patient Instructions/Handouts: Pulmonary Embolism (DC) Activity/Diet/Wound Care/Special Instructions: Low carbohydrate diets, 1800 kcal per day diet Activity is restricted till you see your doctor Co-pay for Eliquis is $550 per month Discharge Disposition: HOME SELF-CARE
--- NOTE | 2021-06-09 08:11 | CDI ---
Documentation Clarification Form Date: 06/09/21 From: Viri Macias Admit Date: 06/01/2021 08:38:00 PM Patient Name: Yung Cisse Visit Number: [id number] Discharge Date: 06/05/2021 05:43:00 PM ATTENTION: The Clinical Documentation Specialists (CDI) and [facility] Coding Staff appreciate your assistance in clarifying documentation. Please respond to the clarification below the line at the bottom and electronically sign. The CDI & [facility] Coding staff will review the response and follow-up if needed. Please note: Queries are made part of the Legal Health Record. If you have any questions, please contact the author of this message via ITS. Dr. Velez E Brad, The patient has had a recent episode of COVID-19 infection on May 13 as documented in the medical record, and now presents with: bilateral pneumonia and bilateral pulmonary embolism per H&P. PCR came back negative evening of 06/01 day of admission. Treated with Dexamethasone. Please clarify the current status of the patients COVID-19 infection in the next progress note and/or discharge summary such as: ___ COVID-19 is not a current infection, and the stated condition is a residual effect/sequelae of COVID-19 (post COVID) ___ COVID-19 continues to be a current and active infection, and the stated condition is a continuation of its symptoms ___ Other explanation of clinical findings (please specify): ___ Clinically unable to determine the current status of the patients COVID-19 infection ___ Unknown COVID-19 continues to be a current and active infection, his dyspnea is multifactorial , partly is due to covid infection and partly due to PE , for which covid is also a risk factor MTDD
== END 2021-06-05 17:43 | disposition home or self-care (01) | DRG 175 ==
LOC: EC 16:58 → 3SCARD 20:38
PROVIDERS: ADMIT Hospitalist; ATTEND Hospitalist
DX: I26.99 Other pulmonary embolism without acute cor pulmonale (principal); U07.1 COVID-19; J96.01 Acute respiratory failure with hypoxia; J12.82 Pneumonia due to coronavirus disease 2019; J90 Pleural effusion, not elsewhere classified; U09.9 Post COVID-19 condition, unspecified; R80.9 Proteinuria, unspecified; F17.211 Nicotine dependence, cigarettes, in remission; Z83.2 Family history of diseases of the blood and blood-forming organs and certain disorders involving the immune mechanism
CPT/HCPCS: 36415; 71045; 71046; 71275; 80048; 80053; 81001; 81003; 83605; 83615; 83735; 84145; 84484; 85025; 85379; 85610; 85730; 86140; 87040; 87086; 87635; 93005; 93306; 93970; 94640; 96361; 96374; 96375; 99291